=== PATIENT | male | born 1965 | race Hispanic/Latino ===

== ENCOUNTER 2024-11-01 10:22 | Inpatient (IN) | payer SELFPAY ==
[2024-11-01] VITALS (52 sets, daily range): BP systolic 72–139; BP diastolic 42–73; PULSE 75–163; RESP 10–28; TEMP 98.6–99.5; O2SAT 95–99
[~2024-11-01] VITALS: Ht 165.1 cm; Wt 71.9 kg
[~2024-11-01 10:22] MED LIST: ALBUMIN (HUMAN) 25% 50 ML IV ONE
[2024-11-01] MEDS ORDERED: ceFAZolin SODIUM 2 GM VIAL IVP SCH (11:00)
--- NOTE | 2024-11-01 11:01 | NUR ---
Arrived from [facility], transfer for urgent IABP/ CABG Left main 90%, on heparin drip at 17 u kg /hr or 13.48 cc Alert /oriented, sheath in place to right groin, no oozing or indurations Pending face to face to MD to explain plan of care. Patient and family states that it was not explained to them everything that was going to happen.
[2024-11-01] MEDS ORDERED: LACTULOSE 20 GM/30 ML UDCUP PO PRN ×2 (12:00→16:30)
[2024-11-01] MEDS ORDERED: acetaMINOPHEN 325 MG TAB PO PRN ×3 (12:00→17:00)
[2024-11-01] MEDS ORDERED: polyETHYLene GLYCol 3350 17 GM POWD.PACK PO PRN (12:00)
[2024-11-01] MEDS ORDERED: NITROGLYCERIN 0.4 MG SL TAB SL PRN (12:00)
[2024-11-01] MEDS ORDERED: hydrALAZine 25MG TABLET PO PRN (12:00)
[2024-11-01] MEDS ORDERED: ondanSETRON 4MG INJ IV PRN ×2 (12:00→17:00)
[2024-11-01] MEDS ORDERED: HEParin 25,000 UNITS/250ML D5W 250 ML IV SCH (12:00)
[2024-11-01] MEDS ORDERED: doCUSate SODIUM 100 MG CAP PO PRN (12:00)
--- NOTE | 2024-11-01 12:06 | HMCIMG ---
CHEST 1VW REASON: pre op CABG COMPARISON: 10/31/2024 FINDINGS: Single view of the chest was obtained. Lungs are clear. Heart size is normal. There is no pulmonary vascular congestion. Mediastinum and bony thorax appear unremarkable. IMPRESSION: 1. Normal single view chest x-ray.
--- NOTE | 2024-11-01 12:06 | HP ---
[facility] HISTORY & PHYSICAL Date Patient Seen: Nov 01, 2024 Time of Visit: 12:02 Supervising Physician: Ruby Salvador Primary Care Physician: Never seen a family doctor, only Dr. Jorge Blevins Outpatient Specialists: Jorge Hawkins Inpatient Consults: Dr. Blevins, Dr. Walker PROBLEM LIST: Unstable angina Non STEMI S/P C with MvCAD, left main disease in [facility] on 11/01/2024 Multivessel coronary artery disease Primary hypertension Hyperglycemia in the setting of type 2 diabetes mellitus History of hypertension, hyperlipidemia, diabetes mellitus, CAD post stent and PTCA, former 50 pack year cigarette smoker HPI: This is a 59-year-old male with past medical history of type 2 diabetes mellitus, hyperlipidemia, CAD post PTCA and stent to mid and distal RCA and left main disease, low testosterone on testosterone injections weekly, and former 50 pack year cigarette smoker who came to [facility] from [facility] for non STEMI post left heart catheterization with finding of left main disease with normal ejection fraction being evaluated for CABG. Prior to this patient had been having recurrent chest pain with CABRERA. 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 He underwent an emergent left heart catheterization on 07/18/2024 that demonstrated proximal to mid RCA stenosis of 99% with distal RCA stenosis of 70%. PTCA and stent were established to mid and distal RCA with thrombectomy. 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 He was started on aspirin and prasugrel 10 mg daily. When he came back to [facility], he had a chest pain and underwent a treadmill stress test yesterday with findings positive stress test concerning for multivessel CAD. Patient underwent left heart catheterization that was done in [facility] on 10/31/2024 with finding of multivessel coronary artery disease. Patient was then sent to [facility] for evaluation of CABG and IABP for stabilization. 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 Dyspnea, Edema, Lt Headedness Gastrointestinal: No: Nausea, Vomiting, Abdominal Pain, Diarrhea, Constipation, Melena, Hematochezia Genitourinary: No Dysuria, No Frequency, No Incontinence, No Hematuria, No Retention Musculoskeletal: No: other, neck pain, shoulder pain, arm pain, back pain, hand pain, leg pain, foot pain Skin: No Urticaria, No Rash Neurological: No: Weakness, Numbness, Incoordination, Change in speech, Confusion, Seizures PHYSICAL EXAM: GENERAL: alert, weak, awake oriented x 3 HEENT: EOMI, Sclera non icteric, moist mucosa NECK: Supple, no JVD, trachea midline LUNGS: Clear breath sounds bilaterally. No wheezes HEART: Regular rate and rhythm. Normal S1 and S2, without murmurs ABD: Abdomen soft, nontender. Bowel sounds present EXT: No clubbing cyanosis or edema. Right groin with sheath in place NEURO: Alert and oriented to person, follows commands Vital Signs (last 8hr) Date Time Temp Pulse Resp B/P (MAP) Pulse Ox O2 Delivery O2 Flow Rate FiO2 11/01/24 11:30 75 16 109/67 97 Room Air 11/01/24 11:08 77 16 98 Room Air LABS: DIAGNOSTICS / RADIOLOGY RESULTS: [ ] PLAN NEURO: Minimize central acting medications as possible. Fall Precautions. Well lighted room through the day and minimize interruptions through the night to prevent acute delirium. PULMONARY: Supplemental 02 as needed Titrate Fio2 to keep Spo2 > or = 90% DuoNebs and CPT as needed IS hourly while awake for pulmonary hygiene Out of bed to chair as tolerated CARDIOVASCULAR: Follow hemodynamics. Titrate vasopressor to keep MAP >65 or systolic blood pressure >95mmHg Right sheath care with hemodynamic monitoring. Heparin drip Resume metoprolol, statin, and aspirin Pasugrel to resume per CV surgery Follow cardiology and CV surgery recommendations Echocardiogram will be repeated DRIPS: Heparin LINES: PIV Right groin sheath ankit NETTLES 11/01 GI & NUTRITION: Continue nutritional support Aspirations precautions Prokinetic agents and laxatives as needed KIDNEYS & ELECTROLYTES: Strict monitoring of intake and output Daily weights Avoid nephrotoxic agents Monitor electrolytes and replace as needed Goal urine output of 30mL/hr or 0.5mL/kg/hr ENDOCRINE: Maintain blood glucose between 100-180 at all times. Insulin sliding scale for blood glucose management INFECTIOUS DISEASE: Trend temperature. Benavides-culture if febrile. Micro: Antibiotics: HEMATOLOGY & COAGULATION: Monitor H&H. Keep Hgb > 7 Transfuse 1 unit of PRBC for Hgb < 7 Transfuse 1 pack of platelets of platelets < 20, 000 Watch for any signs and symptoms of bleeding SKIN: Pressure ulcer prevention per facility protocol Rehab: PT/OT Prophylaxis: GI: Pepcid DVT: Heparin Code Status: Full Resuscitation Disposition: ICU Other: Total patient care time exceeds 35 minutes excluding all procedures. Case was discussed and seen with my supervising physician. The above plan was formulated and agreed upon. JALEN SHAH [facility] Nov 01, 2024 12:06
[2024-11-01] MEDS ORDERED: hydrALAZine 20MG/ML VIAL IV PRN (12:30)
[2024-11-01 12:39] LABS: HEMATOCRIT 44.4 % (42-54); MEAN CORPUSCULAR HEMOGLOBIN 31.1 pg (27.0-33.0); MEAN CORPUSCULAR HGB CONC 33.6 g/dL (32.0-36.0); MEAN CORPUSCULAR VOLUME 92.7 fL (79-99); RED BLOOD CELL COUNT(AUTO) 4.79 MIL/uL (4.50-6.20); RED CELL DISTRIBUTION WIDTH 11.9 % (11.0-15.5); WHITE BLOOD COUNT (AUTO) 7.8 K/uL (4.8-10.8)
[2024-11-01 12:50] LABS: INR 1.05 (0.85-1.15); PROTHROMBIN TIME 11.3 SEC (9.6-11.6)
[2024-11-01 12:52] LABS: PARTIAL THROMBOPLASTIN TIME 62.9 SEC (26.3-35.5)
[2024-11-01] MEDS: metoPROLOL tartRATE 25 MG TAB PO ONE (13:00)
[2024-11-01 13:18] LABS: HEMOGLOBIN A1C 6.4 % (4.0-6.0)
[2024-11-01 13:21] LABS: ALBUMIN 3.4 g/dL (3.5-5.0); CREATININE 0.8 mg/dL (0.5-1.3); TOTAL PROTEIN, SERUM 6.4 g/dL (6.0-8.3)
--- NOTE | 2024-11-01 13:39 | CONS ---
[facility] CARDIOLOGY CONSULTATION NOTE Date Patient Seen: Nov 01, 2024 Time of Visit: 13:22 Reason for Consultation: [ Coronary arterial disease] History of Present Illness: [59-year-old male patient that follows up at clinic with Dr. Blevins with a past medical history of type 2 diabetes mellitus, hyperlipidemia, coronary artery disease status post recent NSTEMI on 07/18/2024 while in [facility] status post PTCA/PCI of the mid and distal RCA with a 3.5 x 48 mm Xience guide point drug-eluting stent (mid RCA) and a 2.5 x 28 mm plus a 2.5 x 8 mm Xience guide point drug-eluting stent to the distal RCA the patient presented to the office on 10/29/2024 endorsing recurrent limiting angina, due to his ongoing symptoms the patient underwent treadmill stress test on 10/31/2024 exercise was terminated after 4 minutes and 20 seconds due to progressive shortness of breath and chest discomfort with significant ST elevations in AVR, concerning for multivessel CAD, because of the early positive stress test and recurrent angina status post PTCA PCI recently the decision was made to admit the patient at [facility] for coronary angiogram to further define the coronary anatomy the patient was taken to the cardiovascular lab director today that showed 90% ostial left main disease, 70% ostial PDA stenosis, circumflex 60% stenosis OM with a 60% stenosis due to the above-mentioned findings atria was made to consult CV surgery for CABG evaluation the patient was transferred to [facility] for IABP placement. Upon our assessment the patient currently denies any chest pain, palpitations, dyspnea or any other anginal equivalents. Her blood pressure is 118/51 mm of mercury, with a pulse of 78 beats per minute. The patient will undergo IABP placement later this afternoon by Dr. Mac Martinez ] Past Medical History: [Refer to chart ] Past Surgical History: [Refer to HPI ] Family History: [Refer to HPI] Social History: [Refer to HPI] Habits: [Never] smoker. [Denies] alcohol consumption. [Denies] illicit drug use Review of Systems: A review of 12 point system was negative set per HPI Physical Examination: GENERAL: [No acute distress.] HEAD: [Normal with no signs of head trauma.] EYES: [PERRLA, EOMI, conjunctiva and sclera normal.] ENT: [Hearing grossly intact, normal oropharynx.] NECK: [Supple without JVD. There is no tenderness, lymphadenopathy, or masses. No thyromegaly. Normal carotid upstrokes without bruits.] LUNGS: [Clear breath sounds bilaterally. There are right basilar rales one third of the way up the chest. No wheezes, or rhonchi.] HEART: [Normal rate and rhythm. Normal S1 and S2 without mumurs, gallop or rub.] VASC: [Peripheral pulses +2 bilaterally.] ABD: [Bowel sounds normal, soft, nontender, no masses, no organomegaly. No audible bruits.] : [Not examined] LYMPH: [No lymphadenopathy noted.] EXT: [No clubbing, cyanosis or edema.] SKIN: [No rashes or lesions noted.] NEURO: [Awake, alert, and oriented x3. No focal sensory or strength deficits noted.] Vital Signs (last 8hr) Date Time Temp Pulse Resp B/P (MAP) Pulse Ox O2 Delivery O2 Flow Rate FiO2 11/01/24 12:30 78 15 118/51 97 Room Air 11/01/24 12:18 85 14 123/56 97 Room Air 11/01/24 12:15 81 19 124/55 97 Room Air 11/01/24 12:00 82 18 138/62 98 Room Air 11/01/24 11:47 78 16 127/56 97 Room Air 11/01/24 11:45 78 15 130/57 97 Room Air 11/01/24 11:30 75 16 109/67 97 Room Air 11/01/24 11:08 77 16 98 Room Air Laboratory: [ ] Hematology Labs: Test 11/01/24 12:30 Range/Units White Blood Count 7.8 4.8-10.8 K/uL Red Blood Count 4.79 4.50-6.20 MIL/uL Hemoglobin 14.9 14.0-18.0 g/dL Hematocrit 44.4 42-54 % Mean Corpuscular Volume 92.7 79-99 fL Mean Corpuscular Hemoglobin 31.1 27.0-33.0 pg Mean Corpuscular Hemoglobin Concent 33.6 32.0-36.0 g/dL Red Cell Distribution Width 11.9 11.0-15.5 % Platelet Count 258 130-400 K/uL Mean Platelet Volume 10.1 7.5-10.5 fL Nucleated Red Blood Cells 0.0 0.0-0.19 % Chemistry Labs: Test 11/01/24 12:36 11/01/24 12:30 11/01/24 11:52 Range/Units Whole Blood Glucose 93 70-110 MG/DL B-Type Natriuretic Peptide 13 0-100 pg/mL Sodium Level 140 136-145 mmol/L Potassium Level 4.0 3.5-5.1 mmol/L Chloride Level 105 101-111 mmol/L Carbon Dioxide Level 21 21-32 mmol/L Blood Urea Nitrogen 16 7-18 mg/dL Creatinine 0.8 0.5-1.3 mg/dL Glomerular Filtration Rate Calc 101 >90 mL/min Random Glucose 81 70-105 mg/dL Hemoglobin A1c 6.4 H 4.0-6.0 % Estimated Average Glucose (eAG) 137 H 70-126 mg/dL Total Calcium 8.6 8.5-10.1 mg/dL Total Bilirubin 1.0 0.2-1.0 mg/dL Aspartate Amino Transf (AST/SGOT) 21 10-37 U/L Alanine Aminotransferase (ALT/SGPT) 49 12-78 U/L Alkaline Phosphatase 83 50-136 U/L Total Protein 6.4 6.0-8.3 g/dL Albumin 3.4 L 3.5-5.0 g/dL Triglycerides Level 46 30-200 mg/dL Cholesterol Level 89 <200 mg/dL LDL Cholesterol 43 0-99 mg/dL HDL Cholesterol 44 29-71 mg/dL Coagulation Labs: Test 11/01/24 11:52 Range/Units Prothrombin Time 11.3 9.6-11.6 SEC Prothromb Time International Ratio 1.05 0.85-1.15 Activated Partial Thromboplast Time 62.9 H 26.3-35.5 SEC Diagnostics / Radiology: [Copy/Paste Echos/Imaging Report here] Assessment: [Unstable angina NSTEMI, s/p coronary angiogram with severe left main disease and [facility] on 11/01/2024 Multivessel coronary artery disease Primary hypertension Type 2 diabetes mellitus Hyperlipidemia ] Plan: # Severe multivessel CAD - NSTEMI, s/p coronary angiogram with severe left main disease and [facility] on 11/01/2024 History of recent NSTEMI on 07/18/2024 while in [facility] status post PTCA/PCI of the mid and distal RCA with a 3.5 x 48 mm Xience guide point drug- eluting stent (mid RCA) and a 2.5 x 28 mm plus a 2.5 x 8 mm Xience guide point drug-eluting stent to the distal RCA The patient presented to the cardiology clinic on 10/29/2024 endorsing recurrent limiting angina Due to his ongoing symptoms the patient underwent treadmill stress test on 10/31/2024 exercise was terminated after 4 minutes and 20 seconds due to progressive shortness of breath and chest discomfort with significant ST elevations in AVR, concerning for multivessel CAD Because of the early positive stress test and recurrent angina status post PTCA PCI recently the decision was made to admit the patient at [facility] for coronary angiogram to further define the coronary anatomy Patient was started on aspirin 81 mg daily and prasugrel 10 mg daily The patient underwent repeat coronary angiogram 11/01/2024 at [facility] with findings of multivessel coronary artery disease (90% disease of the ostial left main and 70% disease of ostial PDA) Due to the above-mentioned findings CV surgery has been consulted and is pending CABG The patient was transferred to [facility] for IABP placement that will be performed today in the afternoon by Dr. Mac martinez The patient will continue with the heparin drip, aspirin 81 mg daily and atorvastatin 40 mg daily Thank you for this consult cardiology continue to follow along Mac martinez MD ATTESTATION BY PHYSICIAN I have seen and examined the patient, reviewed the above documentation, participated in medical decision making, made necessary modifications, and agree with the treatment plan as documented by my mid-level provider above. MD HONORIO uJne JAMES R MD Nov 01, 2024 13:39
[2024-11-01] MEDS ORDERED: aminoCAProic ACID 5,000MG VIAL 15,000 MG in 0.9% NACL 500ML IV.SOLN 420 ML IV PRN (14:00)
[2024-11-01] MEDS ORDERED: EPINEPHrine PF 1MG (1:1,000) 10 MG in 0.9% NACL 250ML 240 ML IV PRN (14:00)
[2024-11-01] MEDS ORDERED: PAPAVERINE HCL 30 MG/ML 2ML VIAL ONE (14:11)
[2024-11-01] MEDS ORDERED: ceFAZolin SODIUM 1 GM VIAL ONE ×2 (14:11→14:45)
[2024-11-01] MEDS ORDERED: HEParin-NS 1,000 UNIT/500 ML 500 ML IV ONE (14:11)
--- NOTE | 2024-11-01 14:57 | HMCIMG ---
US CAROTID DUPLEX REASON: pre op CABG TECHNIQUE: Exam was performed using spectral analysis and color flow imaging. FINDINGS: Color flow Doppler ultrasound shows normal-appearing bifurcations. There is no anatomic evidence of significant focal narrowing. Flow velocities and velocity ratios appear normal throughout. There is antegrade flow in both vertebral arteries. RIGHT CAROTID: CCA: 143 cm/sec ICA: 108 cm/sec Ratio: ICA/CCA: 0.8 ECA: 148 cm/sec Vertebral artery: 56 cm/sec LEFT CAROTID: CCA: 151 cm/sec ICA: 114 cm/sec Ratio: ICA/CCA: 0.8 ECA: 181 cm/sec Vertebral artery: 61 cm/sec IMPRESSION: Normal bilateral carotid Doppler ultrasound.
[2024-11-01] MEDS ORDERED: LIDOCAINE 2G/250ML 250 ML IV ONE (15:19)
--- NOTE | 2024-11-01 15:30 | NUR ---
SUMMARY-- PATIENT HAD BEEN PICKED UP BY OR STAFF FOR CABG TODAY DR OLMEDO AND DR. HOFFMAN HAVE BOTH EDEL TO BEDSIDE TO EXPLAIN PLAN OFCARE PATIENT HAS BEEN SHAD, PREPPED, BATHED WITH CHG, MAINTAINED ARTERIAL RIGHT GROIN SHEATH WITH NO INDURATION OR OOZING .HEPARIN OFF WHEN DR. Judd VISTED AT BEDSIDE CONSENT OBTAINED WITH FAMILY AT BEDSIDE. P
[2024-11-01] MEDS ORDERED: SODIUM BICARB 50MEQ 50ML VIAL 200 ML ONE (15:40)
[2024-11-01] MEDS ORDERED: proPOFol 10 MG/ML 20ML VIAL IV ONE (15:40)
[2024-11-01] MEDS ORDERED: NOREPINEPHRINE BITARTRATE 1 MG/1 ML ML IV ONE (15:40)
[2024-11-01] MEDS ORDERED: PROTamine SULFate 10 MG/ML 25ML VIAL IV ONE (15:40)
[2024-11-01] MEDS ORDERED: PRAS10TA9 PO (15:40)
[2024-11-01] MEDS ORDERED: METO-391 PO (15:40)
[2024-11-01] MEDS ORDERED: ATOR-2 PO (15:40)
[2024-11-01] MEDS ORDERED: ASPI-1005 PO (15:40)
[2024-11-01] MEDS ORDERED: EMPA10TA PO (15:40)
[2024-11-01] MEDS ORDERED: LIDOCAINE PF 100MG/5ML (2%) SYRINGE 5ML ONE (15:40)
[2024-11-01] MEDS ORDERED: FENTanyl CITRate PF 50 MCG/1 ML 20ML VIAL IJ ONE (15:40)
[2024-11-01] MEDS ORDERED: HEParin 10,000 UNIT/10ML (1,000 UNIT/ML) VIAL ONE ×2 (15:40→16:11)
[2024-11-01] MEDS ORDERED: EPINEPHrine PF 1MG (1:1,000) 1 MG/ML AMP ONE (15:40)
[2024-11-01] MEDS ORDERED: MIDAZOLAM HCL 1 MG/ML 2ML VIAL ONE (15:41)
[2024-11-01] MEDS ORDERED: rocuRONium bROMide 10MG/1ML 5ML VL ONE (15:41)
[2024-11-01] MEDS: ceFAZolin SODIUM 2 GM VIAL IVP ONE (16:00)
[2024-11-01] MEDS ORDERED: MAGNESIUM HYDROXIDE 30 ML/UDCUP PO PRN (16:30)
[2024-11-01] MEDS ORDERED: INSULIN humuLIN R 100 UNIT/ML 3ML SQ SCH (16:30)
[2024-11-01 16:43] LABS: ABG BASE EXCESS -12.3 mmol/L (-2.0-3.0); ABG HCO3 13.2 mmol/L (21.0-28.0); ABG OXYGEN SATURATION 99.2 % (94.0-98.0); ABG PCO2 29 mmHg (35-48); ABG PH 7.271 (7.350-7.450); CARBON MONOXIDE 0.3 % (0.5-1.5); DEVICE COMMENT 1; HHb 0.8; PO2, ARTERIAL BG 278.6 mmHg (83.0-108.0)
[2024-11-01] MEDS ORDERED: SODIUM BICARB 50MEQ 50ML VIAL 250 ML ONE (16:47)
[2024-11-01] MEDS ORDERED: SODIUM BICARB 50MEQ 50ML VIAL 50 ML ONE (16:53)
[2024-11-01 16:58] LABS: ABG BASE EXCESS -2.5 mmol/L (-2.0-3.0); ABG PCO2 27 mmHg (35-48); ABG PH 7.488 (7.350-7.450); CARBON MONOXIDE 0.2 % (0.5-1.5); DEVICE COMMENT 2; PO2, ARTERIAL BG > 500.0 mmHg (83.0-108.0)
[2024-11-01] MEDS ORDERED: DEXTROSE 50%-WATER 50 ML DISP.SYRIN IV ONE (16:59)
[2024-11-01] MEDS ORDERED: traMADol HCL 50 MG TABLET PO PRN (17:00)
[2024-11-01] MEDS ORDERED: DEXTROSE 50%-WATER 50 ML DISP.SYRIN IV PRN (17:00)
[2024-11-01] MEDS ORDERED: INSULIN REGULAR, HUMAN 3ML 100 UNIT in 0.9%NACL 100ML 99 ML IV SCH (17:00)
[2024-11-01] MEDS ORDERED: morPHINE 4 MG SYG IV PRN (17:00)
[2024-11-01] MEDS ORDERED: morPHINE 2 MG SYG IV PRN (17:00)
[2024-11-01] MEDS ORDERED: acetaMINOPHEN 650 MG SUPPOSITORY RC PRN (17:00)
[2024-11-01] MEDS ORDERED: CALCIUM GLUC 1GM 1 GM in 0.9%NACL 50ML 50 ML IV PRN (17:00)
[2024-11-01] MEDS ORDERED: proPOFol 1000 MG/100 ML 100 ML IV PRN (17:00)
[2024-11-01] MEDS ORDERED: NITROGLYCERIN 50MG/D5W 250ML 250 BOT IV SCH (17:00)
[2024-11-01] MEDS ORDERED: aminoCAProic ACID 5,000MG VIAL 15,000 MG in 0.9% NACL 250ML 250 ML IV SCH (17:00)
[2024-11-01] MEDS ORDERED: NOREPINEPHRINE BITARTRATE 8 MG in DEXTROSE 5%-WATER 250 ML IV PRN (17:00)
[2024-11-01] MEDS ORDERED: 0.9%NACL 10ML VIAL IVP PRN (17:00)
[2024-11-01] MEDS ORDERED: GLUCAGON 1MG KIT 1 MG ML IM PRN (17:00)
[2024-11-01] MEDS ORDERED: 0.9% NACL 500ML IV.SOLN 500 ML IV SCH (17:00)
[2024-11-01] MEDS: 0.9%NACL 1000ML 1,000 ML IV SCH (17:00)
[2024-11-01] MEDS ORDERED: poTASSium PHOS 15 mMOL+NS250ML 250 ML IV PRN (17:00)
[2024-11-01 17:19] LABS: ABG HCO3 21.6 mmol/L (21.0-28.0); ABG OXYGEN SATURATION 98.4 % (94.0-98.0); ABG PCO2 28 mmHg (35-48); ABG PH 7.498 (7.350-7.450); CARBON MONOXIDE 0.2 % (0.5-1.5); DEVICE COMMENT 4; HHb 1.6; PO2, ARTERIAL BG 164.9 mmHg (83.0-108.0)
[2024-11-01 18:03] LABS: ABG BASE EXCESS 1.1 mmol/L (-2.0-3.0); ABG HCO3 26.2 mmol/L (21.0-28.0); ABG OXYGEN SATURATION 98.7 % (94.0-98.0); ABG PCO2 44 mmHg (35-48); ABG PH 7.393 (7.350-7.450); CARBON MONOXIDE 0.2 % (0.5-1.5); DEVICE COMMENT 6; HHb 1.3; PO2, ARTERIAL BG 266.3 mmHg (83.0-108.0)
[2024-11-01] MEDS ORDERED: ALBUTEROL INHALER 90MCG/INH IH ONE (18:22)
[2024-11-01 18:33] LABS: ABG BASE EXCESS -4.4 mmol/L (-2.0-3.0); ABG HCO3 21.7 mmol/L (21.0-28.0); ABG OXYGEN SATURATION 97.6 % (94.0-98.0); ABG PCO2 44 mmHg (35-48); ABG PH 7.311 (7.350-7.450); CARBON MONOXIDE 0.3 % (0.5-1.5); DEVICE COMMENT 6; HHb 2.4
[2024-11-01 18:40] LABS: ABG BASE EXCESS -3.7 mmol/L (-2.0-3.0); ABG HCO3 22.2 mmol/L (21.0-28.0); ABG OXYGEN SATURATION 97.3 % (94.0-98.0); ABG PCO2 44 mmHg (35-48); ABG PH 7.321 (7.350-7.450); CARBON MONOXIDE 0.3 % (0.5-1.5); DEVICE COMMENT 1; HHb 2.7
[2024-11-01 19:20] LABS: ABG BASE EXCESS 2.7 mmol/L (-2.0-3.0); ABG HCO3 28.3 mmol/L (21.0-28.0); ABG OXYGEN SATURATION 96.5 % (94.0-98.0); ABG PCO2 50 mmHg (35-48); ABG PH 7.374 (7.350-7.450); CARBON MONOXIDE 0.3 % (0.5-1.5); HHb 3.5; PO2, ARTERIAL BG 105.5 mmHg (83.0-108.0); VENT MODE, BG SIMV PS 10 (ROOM AIR)
[2024-11-01 19:33] LABS: HEMATOCRIT 23.2 % (42-54); MEAN CORPUSCULAR HEMOGLOBIN 31.6 pg (27.0-33.0); MEAN CORPUSCULAR HGB CONC 34.1 g/dL (32.0-36.0); MEAN CORPUSCULAR VOLUME 92.8 fL (79-99); RED BLOOD CELL COUNT(AUTO) 2.5 MIL/uL (4.50-6.20); WHITE BLOOD COUNT (AUTO) 23.6 K/uL (4.8-10.8)
[2024-11-01 19:46] LABS: CREATININE 1.1 mg/dL (0.5-1.3); INR 1.16 (0.85-1.15); MAGNESIUM 1.9 mg/dL (1.80-2.40); PHOSPHORUS 6.3 mg/dL (2.5-4.9); POTASSIUM 3.6 mmol/L (3.5-5.1); PROTHROMBIN TIME 12.4 SEC (9.6-11.6)
[2024-11-01 19:47] LABS: PARTIAL THROMBOPLASTIN TIME 22.6 SEC (26.3-35.5)
[2024-11-01] MEDS: ASPIRIN 81MG CHEW TAB NG ONE (19:55)
[2024-11-01] MEDS: MAGNESIUM 2GM PREMIX 50ML 50 ML IV PRN (19:56)
[2024-11-01] MEDS: PoTASSium chloRIDE 20MEQ/100ML 100 ML IV PRN (19:57)
--- NOTE | 2024-11-01 19:57 | HMCIMG ---
CHEST 1VW REASON: s/p CABG COMPARISON: 11/01/2024 FINDINGS: There has been an interval median sternotomy. Heart size is normal. There are perihilar infiltrates consistent with mild to moderate vascular congestion. ET appears in good position with tip well above the cale. There is an aortic balloon assist pump present, the tip is at the top of the aortic knob. There is no evidence of pneumothorax or other complication. IMPRESSION: There are hilar infiltrates consistent with pulmonary vascular congestion. 2. Aortic balloon assist pump tip is at the top of the aortic knob.
[2024-11-01] MEDS: acetaMINOPHEN 1,000 MG/100 ML VIAL IV SCH (19:58)
[2024-11-01 20:44] LABS: ABG HCO3 22.9 mmol/L (21.0-28.0); ABG OXYGEN SATURATION 96.6 % (94.0-98.0); ABG PCO2 39 mmHg (35-48); ABG PH 7.382 (7.350-7.450); CARBON MONOXIDE 0.3 % (0.5-1.5); DEVICE COMMENT ALINR MC RN; HHb 3.4; PO2, ARTERIAL BG 103.9 mmHg (83.0-108.0); VENT MODE, BG SIMV PS10 (ROOM AIR)
[2024-11-01] MEDS ORDERED: FAMOTIDINE 20MG VIAL IV SCH (21:00)
[2024-11-01] MEDS: atorVAStatin 40 MG TABLET PO SCH (21:00)
[2024-11-01] MEDS ORDERED: metoPROLOL tartRATE 25 MG TAB PO SCH (21:00)
[2024-11-01] MEDS: doCUSate SODIUM 100 MG CAP PO SCH (21:00)
[2024-11-01] MEDS: IpraTROPium/alBUTERol SULFATE 3 ML SOLUTION IH SCH (21:00)
[2024-11-01] MEDS: SODIUM BICARB 50MEQ 50ML VIAL IV PRN (21:21)
[2024-11-01] MEDS: FAMOTIDINE 20MG VIAL IV SCH (21:22)
[2024-11-01] MEDS: ceFAZolin SODIUM 2 GM VIAL IVPB SCH (21:23)
[2024-11-01] MEDS ORDERED: WATER IJ SCH (21:30)
[2024-11-01] MEDS ORDERED: DEXTROSE 5% IJ SCH (21:30)
[2024-11-01] MEDS ORDERED: METHYLENE BLUE IJ SCH (21:30)
[2024-11-01] MEDS: ALBUMIN (HUMAN) 5% 250 ML IV PRN (21:30)
[2024-11-01 21:41] LABS: ABG BASE EXCESS 0.7 mmol/L (-2.0-3.0); ABG HCO3 23.9 mmol/L (21.0-28.0); ABG OXYGEN SATURATION 97.9 % (94.0-98.0); ABG PCO2 33 mmHg (35-48); ABG PH 7.478 (7.350-7.450); CARBON MONOXIDE 0.2 % (0.5-1.5); HHb 2.1; PO2, ARTERIAL BG 162.4 mmHg (83.0-108.0); VENT MODE, BG SIMV PS 10 (ROOM AIR)
[2024-11-01] MEDS: DEXTROSE 5% IJ SCH (21:42)
[2024-11-01] MEDS: METHYLENE BLUE IJ SCH (21:42)
[2024-11-01] MEDS: WATER IJ SCH (21:42)
[2024-11-01] MEDS: PHARMACY COMMUNICATION MISC SCH (21:47)
[2024-11-01 22:53] LABS: ABG BASE EXCESS 3.9 mmol/L (-2.0-3.0); ABG HCO3 27.6 mmol/L (21.0-28.0); ABG OXYGEN SATURATION 98.2 % (94.0-98.0); ABG PCO2 38 mmHg (35-48); ABG PH 7.479 (7.350-7.450); CARBON MONOXIDE 0.3 % (0.5-1.5); HHb 1.8; PO2, ARTERIAL BG 192.8 mmHg (83.0-108.0); VENT MODE, BG SIMV PS 10 (ROOM AIR)
[2024-11-01 23:53] LABS: ABG BASE EXCESS 5.4 mmol/L (-2.0-3.0); ABG HCO3 28.7 mmol/L (21.0-28.0); ABG OXYGEN SATURATION 98.2 % (94.0-98.0); ABG PCO2 37 mmHg (35-48); ABG PH 7.512 (7.350-7.450); CARBON MONOXIDE 0.3 % (0.5-1.5); HHb 1.8; PO2, ARTERIAL BG 229.4 mmHg (83.0-108.0); VENT MODE, BG SIMV PS 10 (ROOM AIR)
[2024-11-02] VITALS (177 sets, daily range): BP systolic 75–157; BP diastolic 42–96; PULSE 86–122; RESP 10–23; TEMP 97.7–100.2; O2SAT 96–99
[2024-11-02] MEDS: NOREPINEPHRIN 8MG/250ML NS 250 ML IV PRN (00:22)
[2024-11-02] MEDS: VASOpressin 20 UNITS/ML 1ML Vi 40 UNITS in 0.9%NACL 50ML 40 ML IV SCH (00:24)
[2024-11-02] MEDS: dexmedeTOMIDine 400MCG/NS100ML IV SCH (00:26)
[2024-11-02 01:09] LABS: ABG BASE EXCESS 4.2 mmol/L (-2.0-3.0); ABG HCO3 28.5 mmol/L (21.0-28.0); ABG OXYGEN SATURATION 97.5 % (94.0-98.0); ABG PCO2 42 mmHg (35-48); CARBON MONOXIDE 0.3 % (0.5-1.5); HHb 2.5; PO2, ARTERIAL BG 136.6 mmHg (83.0-108.0); VENT MODE, BG SIMV PS 10 (ROOM AIR)
--- NOTE | 2024-11-02 01:46 | OP ---
DATE OF PROCEDURE: 11/01/2024 PREOPERATIVE DIAGNOSIS: Left main coronary artery disease. POSTOPERATIVE DIAGNOSIS: Left main coronary artery disease. PROCEDURES PERFORMED: Pump-assisted coronary artery bypass grafting x 3 vessels (left internal mammary artery to the LAD, reverse saphenous vein graft from the aorta to the distal LAD, reverse saphenous vein graft from the aorta to the second obtuse marginal coronary artery). OPERATING SURGEON: Deejay Walker MD RADIO ELECTRONICS OFFICER: JAILYN Mcadams and Christiano Mtz MD TYPE OF ANESTHESIA: General endotracheal anesthesia. BRIEF HISTORY: The patient is a 59-year-old male who was transferred from [facility] with a left 90% left main coronary artery disease. The patient previously had a history of coronary artery disease that required 3 stents to be placed in his right coronary artery. These stents are currently opened. The patient reportedly had a normal ejection fraction. He presents now for surgical revascularization. FINDINGS: The patient on induction developed severe tachycardia and hypotension requiring emergency placement of a right femoral intraaortic balloon pump. By echo, his ejection fraction was approximately 25% with global depressed function. He was therefore cannulated through the left femoral artery and vein for cardiopulmonary bypass and the patient stabilized. The left internal mammary artery was placed to the LAD and a vein graft was placed to the second obtuse marginal coronary artery. A potential target was the diagonal coronary artery, however, this was 1 mm in size and not grafted. The patient came off of cardiopulmonary bypass without difficulties and was given protamine, and when protamine was completely in, the patient again became hypotensive. An echocardiogram showed hypokinesis of the anteroapical wall. Doppler signals were checked in the vein graft and the left internal mammary artery as well as in the LAD distal to the bypass, and there was a good signal. Despite this, I decided to place a vein graft closer to the apex on the LAD. I did probe the anastomosis and the LAD proximally past the anastomosis without resistance. With a new vein graft and resolution of his hypotension, the wall motion abnormality disappeared and we were able to close the chest with normal ventricular function. DESCRIPTION OF PROCEDURE: The patient was brought to the operating room and placed on the operating table in supine position. He was given general endotracheal anesthesia and lines were placed. He then became hypotensive, and using the previously placed arterial sheath from the femoral artery, an intraaortic balloon pump was placed. Its positioning could not be confirmed by KATY due to poor windows. He was placed on one-to-one support without much improvement. We therefore made a transverse incision in the left groin. The left common femoral artery and common femoral vein were dissected out and 5-0 Prolene pursestrings were placed in the anterior wall and snared. The patient was given 300 units/kg of IV heparin. The femoral artery was cannulated with a 17-Albanian arterial cannula, which was deaired and connected to the arterial limb of the cardiopulmonary bypass circuit. Next, a 23-Albanian venous cannula with its tip in the SVC was placed via the left femoral vein and connected to the venous limb of the cardiopulmonary bypass circuit. The patient was placed on full cardiopulmonary bypass. Next, the left saphenous vein was harvested endoscopically and simultaneously. The left internal mammary artery was taken down after performing a median sternotomy. The left internal mammary artery was then divided distally and clamped with bulldog proximally. The pericardium was opened in the midline and the LAD was stabilized with Acrobat epicardial retractor in its midsection. A 5-0 Prolene snares placed proximal to target site, which was opened longitudinally. The distal end of left internal mammary artery was anastomosed inside the LAD over a 1 mm shunt using a running 7-0 Prolene suture. Its pedicle was tacked to the epicardium with two 6-0 Prolene sutures. Bulldog clamp and snares released and the LAD was reperfused for remainder of the procedure. We next turned our attention to performing the bypass to the second obtuse marginal coronary artery. This received the distal end of a reverse saphenous vein graft. An end-to-side anastomosis was performed over a 1 mm shunt using a running 7-0 Prolene suture and this vein graft was draped under left internal mammary artery and cut to appropriate length to reach the aorta. A partial occlusion clamp was then placed on the ascending aorta and a single 4.0 mm aortotomy hole was made in the proximal ends of vein graft, was anastomosed to the side of aorta using a running 6-0 Prolene suture. The vein graft was de-aired. Partial occlusion clamp removed and the left side of the heart was revascularized. The patient was then easily weaned off of cardiopulmonary bypass, given protamine and decannulated. At that point, the patient became hypotensive again and the echocardiogram showed anterior apical hypokinesis. I then placed a 5-0 Prolene snare proximal to target site on the distal LAD and the remaining reverse saphenous vein graft was anastomosed to the side of the distal LAD over a 1 mm shunt using a running 7-0 Prolene suture. This vein graft was then draped over the anterior wall of the heart and cut to appropriate length to reach the aorta. A single 4.0 mm heartstring aortotomy was made and the proximal ends of vein graft was anastomosed to the side of the aorta using a running 6-0 Prolene suture. This vein graft was deaired, and by that time, the patient's blood pressure was improved and the wall motion abnormality had resolved. I failed to mention that the patient was given an extra 10,000 units of heparin prior to completing the second vein graft anastomosis. I also failed to mention that a 1 mm probe was used to probe the left internal mammary artery anastomosis and the LAD after making the distal LAD arteriotomy and prior to sewing the second vein graft on it. The patient was then given platelets, cryoprecipitate and fresh frozen plasma. The pericardium was then loosely approximated to the heart and grafts with several separate Ethibond sutures. The mediastinum and left chest were drained with 24-Albanian Ankit drain, secured to skin with silk sutures. The sternum was then reapproximated with combination of stainless steel wires and the GEOVANY sternal plating system in presternal fashion, subcutaneous closed with running layers of Vicryl suture and the skin was closed using a running intracuticular Monocryl stitch. The wounds were cleaned and dried, covered with bandages and the patient was undraped and taken intubated to the ICU in critical but stable condition. TID: [id number] RECEIPT: [id number] cc: ROMELIA JOSE MD(User), JAILYN Mcadams, Christiano Mtz MD, ANAMARIA CARR MD(User)
[2024-11-02 02:32] LABS: ABG BASE EXCESS 5.7 mmol/L (-2.0-3.0); ABG HCO3 29.7 mmol/L (21.0-28.0); ABG OXYGEN SATURATION 96.9 % (94.0-98.0); ABG PCO2 41 mmHg (35-48); ABG PH 7.478 (7.350-7.450); CARBON MONOXIDE 0.3 % (0.5-1.5); HHb 3.1; VENT MODE, BG SIMV PS 10 (ROOM AIR)
[2024-11-02 03:24] LABS: ABG BASE EXCESS 5.5 mmol/L (-2.0-3.0); ABG HCO3 29.7 mmol/L (21.0-28.0); ABG OXYGEN SATURATION 97.3 % (94.0-98.0); ABG PCO2 42 mmHg (35-48); ABG PH 7.472 (7.350-7.450); CARBON MONOXIDE 0.3 % (0.5-1.5); HHb 2.7; PO2, ARTERIAL BG 116.6 mmHg (83.0-108.0); VENT MODE, BG SIMV PS 10 (ROOM AIR)
[2024-11-02 04:17] LABS: ABG BASE EXCESS 5.8 mmol/L (-2.0-3.0); ABG HCO3 29.8 mmol/L (21.0-28.0); ABG OXYGEN SATURATION 97.1 % (94.0-98.0); ABG PCO2 41 mmHg (35-48); CARBON MONOXIDE 0.3 % (0.5-1.5); HHb 2.9; VENT MODE, BG AC VC (ROOM AIR)
[2024-11-02 04:50] LABS: HEMATOCRIT 24.4 % (42-54); MEAN CORPUSCULAR HEMOGLOBIN 31.2 pg (27.0-33.0); MEAN CORPUSCULAR HGB CONC 33.2 g/dL (32.0-36.0); MEAN CORPUSCULAR VOLUME 93.8 fL (79-99); RED BLOOD CELL COUNT(AUTO) 2.6 MIL/uL (4.50-6.20); RED CELL DISTRIBUTION WIDTH 12.3 % (11.0-15.5); WHITE BLOOD COUNT (AUTO) 14.3 K/uL (4.8-10.8)
[2024-11-02 04:58] LABS: INR 1.1 (0.85-1.15); PROTHROMBIN TIME 11.8 SEC (9.6-11.6)
[2024-11-02 05:00] LABS: PARTIAL THROMBOPLASTIN TIME 33.2 SEC (26.3-35.5)
[2024-11-02 05:16] LABS: CREATININE 1.7 mg/dL (0.5-1.3); MAGNESIUM 2.1 mg/dL (1.80-2.40); POTASSIUM 3.5 mmol/L (3.5-5.1)
[2024-11-02 05:18] LABS: ABG BASE EXCESS 7.2 mmol/L (-2.0-3.0); ABG HCO3 30.8 mmol/L (21.0-28.0); ABG OXYGEN SATURATION 97.4 % (94.0-98.0); ABG PCO2 40 mmHg (35-48); ABG PH 7.506 (7.350-7.450); CARBON MONOXIDE 0.3 % (0.5-1.5); HHb 2.6; PO2, ARTERIAL BG 121.9 mmHg (83.0-108.0); VENT MODE, BG SIMV PS 10 (ROOM AIR)
[2024-11-02 05:47] LABS: PHOSPHORUS 0.6 mg/dL (2.5-4.9)
--- NOTE | 2024-11-02 06:49 | EKG ---
[facility] Test Date: 2024-11-01 Test Time: 19:35:17 Pat Name: QUITA CHRISTOPHER Department: 2CV Room: 213 1 Gender: M Senior Payroll Specialist: BASSAM VELAZQUEZ : 1965 Requested By: REBEKA COLEMAN Order Number: [id number] Reading MD: Delmi Martinez Measurements Intervals Pandora Rate: 151 P: 62 DC: 162 QRS: 90 QRSD: 76 T: 112 QT: 272 QTc: 431 Interpretive Statements Sinus tachycardia with occasional premature ventricular complexes Rightward axis Marked ST abnormality, possible lateral subendocardial injury No previous ECG available for comparison Electronically Signed On 11-02-2024 16:20:44 MANAGER OF SALES by Delmi Martinez Please click the below link to view image of tracing.
[2024-11-02] MEDS ORDERED: morPHINE 2 MG SYG IV PRN (07:30)
[2024-11-02 07:40] LABS: ABG BASE EXCESS 4.4 mmol/L (-2.0-3.0); ABG HCO3 28.1 mmol/L (21.0-28.0); ABG OXYGEN SATURATION 97.4 % (94.0-98.0); ABG PCO2 38 mmHg (35-48); ABG PH 7.485 (7.350-7.450); CARBON MONOXIDE 0.3 % (0.5-1.5); HHb 2.6; PO2, ARTERIAL BG 116.7 mmHg (83.0-108.0); VENT MODE, BG SIMV PS10 (ROOM AIR)
[2024-11-02] MEDS ORDERED: furoSEMIDE 20MG VIAL IV SCH (09:00)
[2024-11-02 09:09] LABS: ABG BASE EXCESS 3.5 mmol/L (-2.0-3.0); ABG HCO3 27.4 mmol/L (21.0-28.0); ABG OXYGEN SATURATION 94.5 % (94.0-98.0); ABG PCO2 38 mmHg (35-48); ABG PH 7.471 (7.350-7.450); CARBON MONOXIDE 0.3 % (0.5-1.5); HHb 5.5; PO2, ARTERIAL BG 78.2 mmHg (83.0-108.0); VENT MODE, BG SIMV PS10 (ROOM AIR)
--- NOTE | 2024-11-02 09:22 | HMCIMG ---
Exam Type: CHEST 1VW Clinical Information: s/p CABG Comparison: None Findings: Pulmonary pattern is as before. No worrisome interval changes have taken place. Impression: Stable exam.
[2024-11-02] MEDS: ASPIRIN 81 MG EC TAB PO SCH (09:39)
--- NOTE | 2024-11-02 10:03 | HMCIMG ---
Exam Type: CHEST 1VW Clinical Information: repositioned of balloon pump Comparison: None Findings: Pulmonary pattern is as before. No worrisome interval changes have taken place. Impression: Stable exam.
[2024-11-02 10:17] LABS: ABG BASE EXCESS 3.4 mmol/L (-2.0-3.0); ABG HCO3 27.6 mmol/L (21.0-28.0); ABG OXYGEN SATURATION 95.1 % (94.0-98.0); ABG PCO2 40 mmHg (35-48); ABG PH 7.453 (7.350-7.450); CARBON MONOXIDE 0.2 % (0.5-1.5); HHb 4.9; PO2, ARTERIAL BG 83.5 mmHg (83.0-108.0); VENT MODE, BG SIMV PS10 (ROOM AIR)
[2024-11-02] MEDS: furoSEMIDE 40MG VIAL IV SCH (10:28)
--- NOTE | 2024-11-02 10:44 | PN ---
[facility] CARDIOLOGY PROGRESS NOTE Date Patient Seen: Nov 02, 2024 Time of Visit: 10:35 Problem List: [Unstable angina NSTEMI, s/p coronary angiogram with severe left main disease and [facility] on 11/01/2024 Multivessel coronary artery disease Primary hypertension Type 2 diabetes mellitus Hyperlipidemia ] Interval History: [No acute events overnight. The patient is status post CABG x3 v (GOLD-LAD, SVG-DISTAL LAD, SVG-OM ) on by Dr Walker. Patient is intubated with mechanical ventilation support, IABP in place currently at 1:1 . Current hemoglobin 8.1 he is amenable pressor support. Urinary output 12 hours is stable ] Physical Examination: GENERAL: [No acute distress.] HEAD: [Normal with no signs of head trauma.] EYES: [PERRLA, EOMI, conjunctiva and sclera normal.] ENT: [Hearing grossly intact, normal oropharynx.] NECK: [Supple without JVD. There is no tenderness, lymphadenopathy, or masses. No thyromegaly. Normal carotid upstrokes without bruits.] LUNGS: [Clear breath sounds bilaterally. No wheezes, or rhonchi.] HEART: [Normal rate and rhythm. Normal S1 and S2 without mumurs, gallop or rub.] VASC: [Peripheral pulses +2 bilaterally.] ABD: [Bowel sounds normal, soft, nontender, no masses, no organomegaly. No audible bruits.] : [Not examined] LYMPH: [No lymphadenopathy noted.] EXT: [No clubbing, cyanosis or edema.] SKIN: [No rashes or lesions noted.] NEURO: [Awake, alert, and oriented x3. No focal sensory or strength deficits noted.] Laboratory: [ ] Hematology Labs: Test 11/02/24 04:27 Range/Units White Blood Count 14.3 #H 4.8-10.8 K/uL Red Blood Count 2.60 L 4.50-6.20 MIL/uL Hemoglobin 8.1 L 14.0-18.0 g/dL Hematocrit 24.4 L 42-54 % Mean Corpuscular Volume 93.8 79-99 fL Mean Corpuscular Hemoglobin 31.2 27.0-33.0 pg Mean Corpuscular Hemoglobin Concent 33.2 32.0-36.0 g/dL Red Cell Distribution Width 12.3 11.0-15.5 % Platelet Count 255 130-400 K/uL Mean Platelet Volume 10.2 7.5-10.5 fL Nucleated Red Blood Cells 0.0 0.0-0.19 % Chemistry Labs: Test 11/02/24 04:27 11/01/24 12:36 11/01/24 12:30 11/01/24 11:52 Range/Units Sodium Level 159 H 136-145 mmol/L Potassium Level 3.5 3.5-5.1 mmol/L Chloride Level 119 H 101-111 mmol/L Carbon Dioxide Level 33 H 21-32 mmol/L Blood Urea Nitrogen 19 H 7-18 mg/dL Creatinine 1.7 H 0.5-1.3 mg/dL Glomerular Filtration Rate Calc 46 >90 mL/min Random Glucose 106 H 70-105 mg/dL Total Calcium 10.1 8.5-10.1 mg/dL Ionized Calcium 1.30 1.16-1.32 MMOL/L Phosphorus Level 0.6 #*L 2.5-4.9 mg/dL Magnesium Level 2.10 1.80-2.40 mg/dL Whole Blood Glucose 93 70-110 MG/DL B-Type Natriuretic Peptide 13 0-100 pg/mL Hemoglobin A1c 6.4 H 4.0-6.0 % Estimated Average Glucose (eAG) 137 H 70-126 mg/dL Total Bilirubin 1.0 0.2-1.0 mg/dL Aspartate Amino Transf (AST/SGOT) 21 10-37 U/L Alanine Aminotransferase (ALT/SGPT) 49 12-78 U/L Alkaline Phosphatase 83 50-136 U/L Troponin I High Sensitivity 25 4-75 ng/L Total Protein 6.4 6.0-8.3 g/dL Albumin 3.4 L 3.5-5.0 g/dL Triglycerides Level 46 30-200 mg/dL Cholesterol Level 89 <200 mg/dL LDL Cholesterol 43 0-99 mg/dL HDL Cholesterol 44 29-71 mg/dL Coagulation Labs: Test 11/02/24 04:27 Range/Units Prothrombin Time 11.8 H 9.6-11.6 SEC Prothromb Time International Ratio 1.10 0.85-1.15 Activated Partial Thromboplast Time 33.2 # 26.3-35.5 SEC Fibrinogen 346 180-350 mg/dL Diagnostics / Radiology: [Copy/Paste Echos/Imaging Report here] Impression and Plan: [Unstable angina s/p coronary angiogram with severe left main disease and [facility] on 11/01/2024 Multivessel coronary artery disease status post CABG x3 v (GOLD-LAD, RSVG-DIST AL LAD, RSVG-OM ) ON by Dr Walker. Primary hypertension Type 2 diabetes mellitus Hyperlipidemia ] Plan: # Severe multivessel CAD Transferred from [facility] following abnormal stress test and findings of severe multivessel CAD with LM involvement. Pt is now s/p CABG x3 v (GOLD-LAD, SVG-DISTAL LAD, SVG-OM ) on by Dr Walker. History of recent NSTEMI on 07/18/2024 while in [facility] status post PTCA/PCI of the mid and distal RCA with a 3.5 x 48 mm Xience guide point drug- eluting stent (mid RCA) and a 2.5 x 28 mm plus a 2.5 x 8 mm Xience guide point drug-eluting stent to the distal RCA The patient presented to the cardiology clinic on 10/29/2024 endorsing recurrent limiting angina Due to his ongoing symptoms the patient underwent treadmill stress test on 10/31/2024 exercise was terminated after 4 minutes and 20 seconds due to progressive shortness of breath and chest discomfort with significant ST elevat ions in AVR, concerning for multivessel CAD Because of the early positive stress test and recurrent angina status post PTCA PCI recently the decision was made to admit the patient at [facility] for coronary angiogram to further define the coronary anatomy The patient underwent repeat coronary angiogram 11/01/2024 at [facility] with findings of multivessel coronary artery disease (90% disease of the ostial left main and 70% disease of ostial PDA) He is now s/p CABG x3 v, the patient is currently intubated on mechanical ventilation support, Urine output in the past 12 hours 1870 (125 mL/kg/hour) Continue Lasix 40 mg IV every 12 hours Continue aspirin 81 mg daily and atorvastatin 80 mg daily Rest of care per CV surgery. Once CT removed and deemed safe by CV surgery pt will require 6 months of DAPT (Asa/Plavix) Thank you for this consult cardiology continue to follow along postoperatively Mac franks MD ATTESTATION BY PHYSICIAN I have seen and examined the patient, reviewed the above documentation, participated in medical decision making, made necessary modifications, and agree with the treatment plan as documented by my mid-level provider above. MD HONORIO June JAMES R MD Nov 02, 2024 10:44
[2024-11-02] MEDS: NOREPINEPHRINE BITARTRATE 8 MG in DEXTROSE 5%-WATER 250 ML IV PRN (10:55)
[2024-11-02 10:58] LABS: ABG BASE EXCESS 4.5 mmol/L (-2.0-3.0); ABG HCO3 28.3 mmol/L (21.0-28.0); ABG OXYGEN SATURATION 95.8 % (94.0-98.0); ABG PCO2 39 mmHg (35-48); ABG PH 7.478 (7.350-7.450); CARBON MONOXIDE 0.3 % (0.5-1.5); HHb 4.2; PO2, ARTERIAL BG 88.1 mmHg (83.0-108.0); VENT MODE, BG SIMV PS10 (ROOM AIR)
[2024-11-02 11:39] LABS: ABG BASE EXCESS 5.2 mmol/L (-2.0-3.0); ABG HCO3 28.9 mmol/L (21.0-28.0); ABG OXYGEN SATURATION 95.5 % (94.0-98.0); ABG PCO2 39 mmHg (35-48); ABG PH 7.489 (7.350-7.450); CARBON MONOXIDE 0.3 % (0.5-1.5); HHb 4.5; PO2, ARTERIAL BG 81.4 mmHg (83.0-108.0); VENT MODE, BG SIMV PS10 (ROOM AIR)
[2024-11-02 12:26] LABS: ABG BASE EXCESS 4.3 mmol/L (-2.0-3.0); ABG HCO3 27.9 mmol/L (21.0-28.0); ABG OXYGEN SATURATION 96.1 % (94.0-98.0); ABG PCO2 38 mmHg (35-48); ABG PH 7.484 (7.350-7.450); CARBON MONOXIDE 0.3 % (0.5-1.5); HHb 3.9; PO2, ARTERIAL BG 87.7 mmHg (83.0-108.0); VENT MODE, BG SIMV PS10 (ROOM AIR)
[2024-11-02] MEDS: doCUSate NA 100MG/10ML UDCUP PO ONE (12:34)
--- NOTE | 2024-11-02 12:51 | PN ---
SUBJECTIVE: The patient is postop day #1 from pump-assisted coronary artery bypass grafting for left main disease. The patient is in the ICU. He remains intubated and on a vasopressin, Levophed and epinephrine drip. OBJECTIVE: VITAL SIGNS: Reveal blood pressure 120/56, oxygen saturations are 96%, and his pulse is 62. HEENT: Reveals normocephalic, atraumatic. He has oral endotracheal tube which is connected to mechanical ventilator. HEART: S1, S2 and regular this morning. LUNGS: Reveal mild rales and rhonchi bilaterally, but unlabored on mechanical ventilator. ABDOMEN: Nondistended. He has a right femoral intraaortic balloon pump. His left groin incision is bandaged. CHEST: His sternal wound is bandaged. His chest tubes are in place with 530 mL of total output since the time of surgery. GENITOURINARY: He has a Little catheter in his bladder. EXTREMITIES: He has SCDs and HOANG stockings on his lower extremities and a knee immobilizer on his right lower extremity. LABORATORY DATA: His hemoglobin is 9.1. BUN is 19, creatinine 1.7. ABG reveals pH of 7.47, pCO2 of 38, pO2 of 78, bicarbonate 27, oxygen saturations are 93%. ASSESSMENT AND PLAN: 1. Postop day #1 from pump-assisted coronary artery bypass grafting. Continue aspirin. Increase Lasix to 40 mg IV b.i.d. due to pulmonary edema. Increase the intra-aortic balloon pump from 1:2 to 1:1 to support the heart while diuresing. Keep chest tubes in place. 2. Postoperative acute pulmonary insufficiency secondary to thoracic surgery and pulmonary edema. We will diurese as mentioned above and keep the patient supported on mechanical ventilator while treating his pulmonary edema. 3. Hypercholesterolemia. Begin Lipitor 80 mg at bedtime. 4. Deep vein thrombosis prophylaxis. Continue sequential compression devices to lower extremities. Time spent 30 minutes. The patient is critically ill in the ICU. TID: [id number] RECEIPT: [id number]
[2024-11-02 13:09] LABS: ABG BASE EXCESS 6.4 mmol/L (-2.0-3.0); ABG HCO3 30.2 mmol/L (21.0-28.0); ABG OXYGEN SATURATION 96.6 % (94.0-98.0); ABG PCO2 40 mmHg (35-48); ABG PH 7.494 (7.350-7.450); CARBON MONOXIDE 0.2 % (0.5-1.5); HHb 3.4; PO2, ARTERIAL BG 96.1 mmHg (83.0-108.0); VENT MODE, BG SIMV PS10 (ROOM AIR)
[2024-11-02 13:43] LABS: ABG BASE EXCESS 6.6 mmol/L (-2.0-3.0); ABG HCO3 30.9 mmol/L (21.0-28.0); ABG OXYGEN SATURATION 96.9 % (94.0-98.0); ABG PCO2 43 mmHg (35-48); ABG PH 7.472 (7.350-7.450); CARBON MONOXIDE 0.3 % (0.5-1.5); HHb 3.1; PO2, ARTERIAL BG 101.2 mmHg (83.0-108.0); VENT MODE, BG SIMV PS10 (ROOM AIR)
[2024-11-02 14:17] LABS: ABG BASE EXCESS 6.3 mmol/L (-2.0-3.0); ABG HCO3 30.6 mmol/L (21.0-28.0); ABG OXYGEN SATURATION 96.8 % (94.0-98.0); ABG PCO2 43 mmHg (35-48); ABG PH 7.471 (7.350-7.450); CARBON MONOXIDE 0.2 % (0.5-1.5); HHb 3.2; PO2, ARTERIAL BG 103.3 mmHg (83.0-108.0); VENT MODE, BG SIMV PS10 (ROOM AIR)
--- NOTE | 2024-11-02 14:46 | PN ---
[facility] PROGRESS NOTE Date Patient Seen: Nov 02, 2024 Time of Visit: 14:43 Supervising Physician: Conrado Walter Primary Care Physician: Never seen a family doctor, only Dr. Jorge Blevins Outpatient Specialists: Jorge Hawkins Inpatient Consults: Dr. Blevins, Dr. Walker PROBLEM LIST: Unstable angina Non STEMI S/P LHC with MvCAD, left main disease in [facility] on 11/01/2024 Multivessel coronary artery disease Primary hypertension Hyperglycemia in the setting of type 2 diabetes mellitus History of hypertension, hyperlipidemia, diabetes mellitus, CAD post stent and PTCA, former 50 pack year cigarette smoker INTERVAL HISTORY: 11/02 patient is awake alert and oriented x3 no acute event. Patient had undergone a CABG times three yesterday, salmeron to LAD, RSVG to distal LAD, RSVG to OM, and intra-aortic balloon pump placement. This time he remains intubated on SIMV 6/700/5/40%. ABG is reviewed and within normal limits. Patient is not sedated very lethargic at this time. He remains on vasopressor with vasopressin, epinephrine, and Levophed. Continue to wean down these vasopressors. Otherwise intra-aortic balloon pump with 1:1 augmentation. Chest tube in place with output of 350 cc. Urine output was 2.6 L balance-350 cc. Continue post CABG care, isulin drip. Chest x-ray with no pneumothorax. Tip of the intra-aortic balloon pump is in ICS 4. Obtain cxr in a.m.. REVIEW OF SYSTEMS: General: No Fever, No Chills, No Night Sweats, No Fatigue, No Malaise, No Appetite HEENT: No Head Aches, No Visual Changes, No Eye Pain, No Ear Pain, No Dysphasia, No Sinus Congestion, No Post Nasal Drip, No Sore Throat Pulmonary: No Dyspnea; No Cough, No Pleuritic Chest Pain Cardiovascular: Yes: Chest Pain, No Palpitations, Orthopnea, Paroxysmal Noc. Dyspnea, Edema, Lt Headedness Gastrointestinal: No: Nausea, Vomiting, Abdominal Pain, Diarrhea, Constipation, Melena, Hematochezia Genitourinary: No Dysuria, No Frequency, No Incontinence, No Hematuria, No Retention Musculoskeletal: No: other, neck pain, shoulder pain, arm pain, back pain, hand pain, leg pain, foot pain Skin: No Urticaria, No Rash Neurological: No: Weakness, Numbness, Incoordination, Change in speech, Confusion, Seizures PHYSICAL EXAM: GENERAL: alert, weak, awake oriented x 3 HEENT: EOMI, Sclera non icteric, moist mucosa NECK: Supple, no JVD, trachea midline LUNGS: Clear breath sounds bilaterally. No wheezes HEART: Regular rate and rhythm. Normal S1 and S2, without murmurs ABD: Abdomen soft, nontender. Bowel sounds present EXT: No clubbing cyanosis or edema. Right groin with sheath in place NEURO: Alert and oriented to person, follows commands Vital Signs (last 8hr) Date Time Temp Pulse Resp B/P (MAP) Pulse Ox O2 Delivery O2 Flow Rate FiO2 11/02/24 14:28 97 15 11/02/24 13:02 91 13 145/57 (86) 98 131/71 (91) 11/02/24 13:00 90 13 146/58 (87) 98 11/02/24 12:47 93 14 125/47 (73) 98 120/56 (77) 11/02/24 12:45 89 13 122/46 (71) 98 11/02/24 12:32 92 14 119/47 (71) 97 40 121/64 (83) 11/02/24 12:30 90 16 114/45 (68) 97 40 11/02/24 12:17 90 15 133/57 (82) 97 40 122/60 (80) 11/02/24 12:15 90 15 133/57 (82) 97 40 11/02/24 12:08 97 40 11/02/24 12:02 91 14 132/55 (80) 96 40 123/87 (99) 11/02/24 12:00 88 15 116/45 (68) 96 40 11/02/24 11:48 96 Ventilator+ 40 11/02/24 11:47 91 16 134/54 (80) 96 40 125/82 (96) 11/02/24 11:45 92 14 137/55 (82) 96 40 11/02/24 11:32 93 16 141/54 (83) 96 40 132/55 (80) 11/02/24 11:30 91 14 139/54 (82) 96 40 11/02/24 11:17 90 15 139/57 (84) 96 40 128/62 (84) 11/02/24 11:15 90 16 137/57 (83) 96 40 11/02/24 11:00 99.7 90 18 121/47 (71) 96 40 11/02/24 10:55 90/74 11/02/24 10:47 90 17 123/49 (73) 96 40 125/52 (76) 11/02/24 10:45 89 16 124/49 (74) 96 40 11/02/24 10:32 88 15 134/48 (76) 96 40 133/57 (82) 11/02/24 10:30 87 17 129/47 (74) 96 40 11/02/24 10:17 89 18 147/58 (87) 96 40 130/52 (78) 11/02/24 10:15 93 19 153/61 (91) 97 40 11/02/24 10:02 88 18 151/59 (89) 96 40 124/77 (93) 11/02/24 10:00 89 17 138/61 (86) 96 40 11/02/24 09:47 88 15 137/57 (83) 96 40 131/95 (107) 11/02/24 09:45 86 14 124/48 (73) 96 40 11/02/24 09:32 88 15 140/58 (85) 97 40 125/96 (106) 11/02/24 09:30 94 14 111/46 (67) 96 40 11/02/24 09:17 89 15 141/63 (89) 96 40 120/87 (98) 11/02/24 09:16 97 40 11/02/24 09:15 89 15 141/63 (89) 96 40 11/02/24 09:02 89 16 118/54 (75) 96 40 116/59 (78) 11/02/24 09:00 91 14 119/54 (75) 96 40 11/02/24 08:47 94 15 117/53 (74) 97 40 115/48 (70) 11/02/24 08:45 94 14 120/55 (76) 96 40 11/02/24 08:32 92 121/52 (75) 97 113/52 (72) 11/02/24 08:30 91 122/53 (76) 96 11/02/24 08:17 93 16 135/61 (85) 96 40 116/46 (69) 11/02/24 08:15 93 15 114/50 (71) 97 40 11/02/24 08:02 96 15 115/51 (72) 97 40 114/47 (69) 11/02/24 08:00 96 14 118/52 (74) 97 40 11/02/24 07:47 95 15 119/52 (74) 97 40 118/51 (73) 11/02/24 07:45 94 14 119/52 (74) 97 40 11/02/24 07:41 40 11/02/24 07:32 96 15 115/55 (75) 97 40 105/47 (66) 11/02/24 07:30 96 15 122/56 (78) 97 40 11/02/24 07:24 97 15 157/62 (93) 99 40 132/60 (84) 11/02/24 07:17 99 14 113/57 (75) 99 40 114/42 (66) 11/02/24 07:15 101 16 134/63 (86) 99 40 11/02/24 07:02 101 17 112/55 (74) 99 40 109/53 (71) 11/02/24 07:00 99 Ventilator+ 50 11/02/24 07:00 101 16 111/55 (73) 99 40 11/02/24 06:47 104 14 103/53 (70) 99 50 101/45 (63) 11/02/24 06:45 98 18 11/02/24 06:45 100.2 104 15 100/52 (68) 99 50 LABS: Hematology Labs: Test 11/02/24 04:27 Range/Units White Blood Count 14.3 #H 4.8-10.8 K/uL Red Blood Count 2.60 L 4.50-6.20 MIL/uL Hemoglobin 8.1 L 14.0-18.0 g/dL Hematocrit 24.4 L 42-54 % Mean Corpuscular Volume 93.8 79-99 fL Mean Corpuscular Hemoglobin 31.2 27.0-33.0 pg Mean Corpuscular Hemoglobin Concent 33.2 32.0-36.0 g/dL Red Cell Distribution Width 12.3 11.0-15.5 % Platelet Count 255 130-400 K/uL Mean Platelet Volume 10.2 7.5-10.5 fL Nucleated Red Blood Cells 0.0 0.0-0.19 % Chemistry Labs: Test 11/02/24 04:27 11/01/24 12:36 11/01/24 12:30 11/01/24 11:52 Range/Units Sodium Level 159 H 136-145 mmol/L Potassium Level 3.5 3.5-5.1 mmol/L Chloride Level 119 H 101-111 mmol/L Carbon Dioxide Level 33 H 21-32 mmol/L Blood Urea Nitrogen 19 H 7-18 mg/dL Creatinine 1.7 H 0.5-1.3 mg/dL Glomerular Filtration Rate Calc 46 >90 mL/min Random Glucose 106 H 70-105 mg/dL Total Calcium 10.1 8.5-10.1 mg/dL Ionized Calcium 1.30 1.16-1.32 MMOL/L Phosphorus Level 0.6 #*L 2.5-4.9 mg/dL Magnesium Level 2.10 1.80-2.40 mg/dL Whole Blood Glucose 93 70-110 MG/DL B-Type Natriuretic Peptide 13 0-100 pg/mL Hemoglobin A1c 6.4 H 4.0-6.0 % Estimated Average Glucose (eAG) 137 H 70-126 mg/dL Total Bilirubin 1.0 0.2-1.0 mg/dL Aspartate Amino Transf (AST/SGOT) 21 10-37 U/L Alanine Aminotransferase (ALT/SGPT) 49 12-78 U/L Alkaline Phosphatase 83 50-136 U/L Troponin I High Sensitivity 25 4-75 ng/L Total Protein 6.4 6.0-8.3 g/dL Albumin 3.4 L 3.5-5.0 g/dL Triglycerides Level 46 30-200 mg/dL Cholesterol Level 89 <200 mg/dL LDL Cholesterol 43 0-99 mg/dL HDL Cholesterol 44 29-71 mg/dL Coagulation Labs: Test 11/02/24 04:27 Range/Units Prothrombin Time 11.8 H 9.6-11.6 SEC Prothromb Time International Ratio 1.10 0.85-1.15 Activated Partial Thromboplast Time 33.2 # 26.3-35.5 SEC Fibrinogen 346 180-350 mg/dL DIAGNOSTICS / RADIOLOGY RESULTS: [ ] PLAN NEURO: Minimize central acting medications as possible. Fall Precautions. Well lighted room through the day and minimize interruptions through the night to prevent acute delirium. PULMONARY: Supplemental 02 as needed Titrate Fio2 to keep Spo2 > or = 90% DuoNebs and CPT as needed IS hourly while awake for pulmonary hygiene Out of bed to chair as tolerated CARDIOVASCULAR: Follow hemodynamics. Titrate vasopressor to keep MAP >65 or systolic blood pressure >95mmHg Right sheath care with hemodynamic monitoring. Heparin drip Resume metoprolol, statin, and aspirin Pasugrel to resume per CV surgery Follow cardiology and CV surgery recommendations Echocardiogram will be repeated DRIPS: Insulin Vasopressin Epinephrine Levophed LINES: Right IJ cordis Left groin sheath for IABP Right groin sheath from [place] 11/01 GI & NUTRITION: Continue nutritional support Aspirations precautions Prokinetic agents and laxatives as needed KIDNEYS & ELECTROLYTES: Strict monitoring of intake and output Daily weights Avoid nephrotoxic agents Monitor electrolytes and replace as needed Goal urine output of 30mL/hr or 0.5mL/kg/hr ENDOCRINE: Maintain blood glucose between 100-180 at all times. Insulin sliding scale for blood glucose management INFECTIOUS DISEASE: Trend temperature. Benavides-culture if febrile. Micro: Antibiotics: HEMATOLOGY & COAGULATION: Monitor H&H. Keep Hgb > 7 Transfuse 1 unit of PRBC for Hgb < 7 Transfuse 1 pack of platelets of platelets < 20, 000 Watch for any signs and symptoms of bleeding SKIN: Pressure ulcer prevention per facility protocol Rehab: PT/OT Prophylaxis: GI: Pepcid DVT: Heparin Code Status: Full Resuscitation Disposition: ICU Other: Total patient care time exceeds 35 minutes excluding all procedures. Case was discussed and seen with my supervising physician. The above plan was formulated and agreed upon. JALEN SHAH [facility] Nov 02, 2024 14:46
[2024-11-02 14:57] LABS: ABG BASE EXCESS 5.1 mmol/L (-2.0-3.0); ABG HCO3 28.8 mmol/L (21.0-28.0); ABG OXYGEN SATURATION 96.8 % (94.0-98.0); ABG PCO2 39 mmHg (35-48); CARBON MONOXIDE 0.2 % (0.5-1.5); HHb 3.2; PO2, ARTERIAL BG 103.8 mmHg (83.0-108.0); VENT MODE, BG SIMV PS10 (ROOM AIR)
[2024-11-02 15:35] LABS: ABG BASE EXCESS 6.1 mmol/L (-2.0-3.0); ABG HCO3 30.4 mmol/L (21.0-28.0); ABG PCO2 43 mmHg (35-48); ABG PH 7.469 (7.350-7.450); CARBON MONOXIDE 0.3 % (0.5-1.5); PO2, ARTERIAL BG 103.8 mmHg (83.0-108.0); VENT MODE, BG SIMV PS10 (ROOM AIR)
[2024-11-02] MEDS: traMADol HCL 50 MG TABLET PO PRN (15:58)
--- NOTE | 2024-11-02 16:50 | NUR ---
Hold off on PT eval per RN.
[2024-11-02] MEDS: EPINEPHrine PF 1MG (1:1,000) 10 MG in 0.9% NACL 250ML 240 ML IV PRN (18:01)
[2024-11-02 18:13] LABS: HEMATOCRIT 26.9 % (42-54)
[2024-11-02 18:38] LABS: CREATININE 1.4 mg/dL (0.5-1.3); MAGNESIUM 1.8 mg/dL (1.80-2.40); PHOSPHORUS 3.3 mg/dL (2.5-4.9); POTASSIUM 4.1 mmol/L (3.5-5.1)
[2024-11-02 19:19] LABS: ABG BASE EXCESS 5.8 mmol/L (-2.0-3.0); ABG HCO3 30.4 mmol/L (21.0-28.0); ABG OXYGEN SATURATION 97.6 % (94.0-98.0); ABG PCO2 45 mmHg (35-48); ABG PH 7.449 (7.350-7.450); CARBON MONOXIDE 0.3 % (0.5-1.5); HHb 2.4; PO2, ARTERIAL BG 117.4 mmHg (83.0-108.0); VENT MODE, BG SIMV PS 10 (ROOM AIR)
[2024-11-02] MEDS: acetaMINOPHEN 325 MG TAB PO PRN (20:31)
[2024-11-02 23:14] LABS: ABG BASE EXCESS 5.4 mmol/L (-2.0-3.0); ABG HCO3 29.4 mmol/L (21.0-28.0); ABG PCO2 41 mmHg (35-48); ABG PH 7.477 (7.350-7.450); CARBON MONOXIDE 0.3 % (0.5-1.5); PO2, ARTERIAL BG 104.1 mmHg (83.0-108.0); VENT MODE, BG SIMV PS 10 (ROOM AIR)
[2024-11-03] VITALS (106 sets, daily range): BP systolic 59–198; BP diastolic 33–95; PULSE 95–116; RESP 10–88; TEMP 98.4–98.8; O2SAT 98–99
[2024-11-03 03:05] LABS: ABG BASE EXCESS 5.2 mmol/L (-2.0-3.0); ABG HCO3 29.3 mmol/L (21.0-28.0); ABG OXYGEN SATURATION 96.6 % (94.0-98.0); ABG PCO2 41 mmHg (35-48); CARBON MONOXIDE 0.3 % (0.5-1.5); HHb 3.4; PO2, ARTERIAL BG 97.2 mmHg (83.0-108.0); VENT MODE, BG SIMV PS 10 (ROOM AIR)
[2024-11-03 04:32] LABS: HEMATOCRIT 28.9 % (42-54); MEAN CORPUSCULAR HEMOGLOBIN 31.3 pg (27.0-33.0); MEAN CORPUSCULAR HGB CONC 32.5 g/dL (32.0-36.0); MEAN CORPUSCULAR VOLUME 96.3 fL (79-99); RED CELL DISTRIBUTION WIDTH 13.1 % (11.0-15.5)
[2024-11-03 04:50] LABS: CREATININE 1.5 mg/dL (0.5-1.3); POTASSIUM 4.3 mmol/L (3.5-5.1); TOTAL PROTEIN, SERUM 5.9 g/dL (6.0-8.3)
[2024-11-03 07:40] LABS: ABG BASE EXCESS 7.6 mmol/L (-2.0-3.0); ABG HCO3 32.3 mmol/L (21.0-28.0); ABG OXYGEN SATURATION 96.8 % (94.0-98.0); ABG PCO2 47 mmHg (35-48); ABG PH 7.457 (7.350-7.450); CARBON MONOXIDE 0.3 % (0.5-1.5); HHb 3.2; PO2, ARTERIAL BG 97.2 mmHg (83.0-108.0); VENT MODE, BG SIMV PS10 (ROOM AIR)
[2024-11-03] MEDS: DEXTROSE 5%-WATER 1,000 ML IV SCH (08:07)
--- NOTE | 2024-11-03 08:51 | HMCIMG ---
Exam Type: CHEST 1VW Clinical Information: s/p CABG Comparison: None November 02, 2024: Pulmonary pattern is as before. No worrisome interval changes have taken place. Impression: Stable exam.
[2024-11-03] MEDS ORDERED: furoSEMIDE 40 MG TABLET PO SCH (09:00)
[2024-11-03] MEDS ORDERED: furoSEMIDE 20 MG TABLET PO SCH (09:00)
[2024-11-03] MEDS: furoSEMIDE 20 MG TABLET PO SCH (09:11)
--- NOTE | 2024-11-03 09:34 | PN ---
[facility] PROGRESS NOTE Date Patient Seen: Nov 03, 2024 Time of Visit: 09:31 Supervising Physician: Conrado Walter Primary Care Physician: Never seen a family doctor, only Dr. Jorge Blevins Outpatient Specialists: Jorge Hawkins Inpatient Consults: Dr. Blevins, Dr. Walker PROBLEM LIST: Unstable angina Non STEMI S/P C with MvCAD, left main disease in [facility] on 11/01/2024 Multivessel coronary artery disease S/P CABG x3 and IABP on 11/02 Dr. Walker Post op leukocytosis- reactive Acute diastolic dysfunction heart failure - LVEF 55% Primary hypertension Hyperglycemia in the setting of type 2 diabetes mellitus History of hypertension, hyperlipidemia, diabetes mellitus, CAD post stent and PTCA, former 50 pack year cigarette smoker INTERVAL HISTORY: 11/02 patient is awake alert and oriented x3 no acute event. Patient had undergone a CABG times three yesterday, salmeron to LAD, RSVG to distal LAD, RSVG to OM, and intra-aortic balloon pump placement. This time he remains intubated on SIMV 6/700/5/40%. ABG is reviewed and within normal limits. Patient is not sedated very lethargic at this time. He remains on vasopressor with vasopressin, epinephrine, and Levophed. Continue to wean down these vasopressors. Otherwise intra-aortic balloon pump with 1:1 augmentation. Chest tube in place with output of 350 cc. Urine output was 2.6 L balance-350 cc. Continue post CABG care, isulin drip. Chest x-ray with no pneumothorax. Tip of the intra-aortic balloon pump is in ICS 4. Obtain cxr in a.m.. 11/03 patient remains intubated on SIMV 10/5 FiO2 40%, ABG this morning pH 7.45, pCO2 47 PO2 97 bicarb is 32. Chemistry with sodium 151 this is actually down from 156 yesterday creatinine is 1.5 down from 1.7 yesterday. He has been diuresed with urine output of 7.1 L balance-4 L. Chest tube with 140 cc. Liver function with the AST up to 500 from 21 and ALT is 200 from 49. Total bilirubin remains normal at 1.0, patient likely has shock liver, we will continue to follow liver function tomorrow. Otherwise hematology with WBC of 19.0 from 14. Hemoglobin is 9.4. He has no fever with T-max 98.8. Chest x-ray this morning with no acute changes, no pneumothorax. He remains on vasopressors with epinephrine and Levophed drip. Continue to wean down as tolerated keep MAP >65. Patient also has intra-aortic balloon pump at 1:1 being weaned to 1:2 this morning, plan to discontinue in AM. Patient is being weaned to extubate today. REVIEW OF SYSTEMS: General: No Fever, No Chills, No Night Sweats, No Fatigue, No Malaise, No Deb etite HEENT: No Head Aches, No Visual Changes, No Eye Pain, No Ear Pain, No Dysphasia, No Sinus Congestion, No Post Nasal Drip, No Sore Throat Pulmonary: No Dyspnea; No Cough, No Pleuritic Chest Pain Cardiovascular: Yes: Chest Pain, No Palpitations, Orthopnea, Paroxysmal Noc. Dyspnea, Edema, Lt Headedness Gastrointestinal: No: Nausea, Vomiting, Abdominal Pain, Diarrhea, Constipation, Melena, Hematochezia Genitourinary: No Dysuria, No Frequency, No Incontinence, No Hematuria, No Retention Musculoskeletal: No: other, neck pain, shoulder pain, arm pain, back pain, hand pain, leg pain, foot pain Skin: No Urticaria, No Rash Neurological: No: Weakness, Numbness, Incoordination, Change in speech, Confusion, Seizures PHYSICAL EXAM: GENERAL: alert, weak, awake oriented x 3 HEENT: EOMI, Sclera non icteric, moist mucosa NECK: Supple, no JVD, trachea midline LUNGS: Clear breath sounds bilaterally. No wheezes HEART: Regular rate and rhythm. Normal S1 and S2, without murmurs ABD: Abdomen soft, nontender. Bowel sounds present EXT: No clubbing cyanosis or edema. Right groin with sheath in place NEURO: Alert and oriented to person, follows commands Vital Signs (last 8hr) Date Time Temp Pulse Resp B/P (MAP) Pulse Ox O2 Delivery O2 Flow Rate FiO2 11/03/24 08:47 105 24 131/53 (79) 98 40 120/80 (93) 11/03/24 08:32 104 18 119/46 (70) 97 40 115/49 (71) 11/03/24 08:17 98.8 105 16 120/47 (71) 98 40 99/71 (80) 11/03/24 08:15 98.8 11/03/24 08:02 102 10 119/45 (69) 98 40 104/44 (64) 11/03/24 07:47 102 21 121/44 (69) 98 40 136/47 (76) 11/03/24 07:32 102 20 117/43 (67) 98 40 105/42 (63) 11/03/24 07:17 102 18 116/44 (68) 98 40 99/41 (60) 11/03/24 07:02 102 14 114/43 (66) 98 40 111/69 (83) 11/03/24 06:47 105 14 132/55 (80) 98 40 113/52 (72) 11/03/24 06:43 99 40 11/03/24 06:00 104 10 115/43 (67) 97 40 114/67 (83) 11/03/24 05:45 105 12 112/44 (66) 97 40 100/49 (66) 11/03/24 05:30 104 10 129/53 (78) 97 40 109/49 (69) 11/03/24 05:15 106 16 120/45 (70) 97 40 113/75 (88) 11/03/24 05:00 107 12 111/46 (67) 96 40 94/66 (75) 11/03/24 04:45 106 12 102/42 (62) 95 40 104/44 (64) 11/03/24 04:30 107 14 111/46 (67) 95 40 101/41 (61) 11/03/24 04:15 109 14 108/57 (74) 93 40 110/65 (80) 11/03/24 04:00 109 17 107/58 (74) 93 40 101/76 (84) 11/03/24 03:45 105 19 123/52 (75) 98 40 127/49 (75) 11/03/24 03:30 102 11 109/49 (69) 98 40 106/73 (84) 11/03/24 03:15 103 11 111/49 (69) 98 40 113/93 (100) 11/03/24 03:14 102 40 11/03/24 03:00 98 Ventilator+ 40 11/03/24 03:00 98.8 103 10 102/41 (61) 98 40 119/42 (67) 11/03/24 02:45 105 11 112/42 (65) 97 40 103/43 (63) 11/03/24 02:30 105 16 98/40 (59) 97 40 96/53 (67) 11/03/24 02:23 110/41 11/03/24 02:15 105 13 114/41 (65) 97 40 115/45 (68) 11/03/24 02:00 105 12 112/41 (64) 96 40 97/56 (70) 11/03/24 01:45 100 14 127/48 (74) 97 40 144/49 (80) LABS: Hematology Labs: Test 11/03/24 04:06 Range/Units White Blood Count 19.0 #H 4.8-10.8 K/uL Red Blood Count 3.00 L 4.50-6.20 MIL/uL Hemoglobin 9.4 L 14.0-18.0 g/dL Hematocrit 28.9 L 42-54 % Mean Corpuscular Volume 96.3 79-99 fL Mean Corpuscular Hemoglobin 31.3 27.0-33.0 pg Mean Corpuscular Hemoglobin Concent 32.5 32.0-36.0 g/dL Red Cell Distribution Width 13.1 11.0-15.5 % Platelet Count 241 130-400 K/uL Mean Platelet Volume 10.4 7.5-10.5 fL Nucleated Red Blood Cells 0.0 0.0-0.19 % Chemistry Labs: Test 11/03/24 07:06 11/03/24 04:06 11/02/24 18:00 11/02/24 04:27 Range/Units Whole Blood Glucose 117 H 70-110 MG/DL Sodium Level 151 H 136-145 mmol/L Potassium Level 4.3 3.5-5.1 mmol/L Chloride Level 114 H 101-111 mmol/L Carbon Dioxide Level 31 21-32 mmol/L Blood Urea Nitrogen 15 7-18 mg/dL Creatinine 1.5 H 0.5-1.3 mg/dL Glomerular Filtration Rate Calc 53 >90 mL/min Random Glucose 134 H 70-105 mg/dL Total Calcium 9.5 8.5-10.1 mg/dL Magnesium Level 2.50 H 1.80-2.40 mg/dL Total Bilirubin 1.0 0.2-1.0 mg/dL Aspartate Amino Transf (AST/SGOT) 585 H 10-37 U/L Alanine Aminotransferase (ALT/SGPT) 203 H 12-78 U/L Alkaline Phosphatase 71 50-136 U/L Total Protein 5.9 L 6.0-8.3 g/dL Albumin 3.0 L 3.5-5.0 g/dL Phosphorus Level 3.3 # 2.5-4.9 mg/dL Ionized Calcium 1.30 1.16-1.32 MMOL/L Test 11/01/24 12:30 11/01/24 11:52 Range/Units B-Type Natriuretic Peptide 13 0-100 pg/mL Hemoglobin A1c 6.4 H 4.0-6.0 % Estimated Average Glucose (eAG) 137 H 70-126 mg/dL Troponin I High Sensitivity 25 4-75 ng/L Triglycerides Level 46 30-200 mg/dL Cholesterol Level 89 <200 mg/dL LDL Cholesterol 43 0-99 mg/dL HDL Cholesterol 44 29-71 mg/dL Coagulation Labs: Test 11/02/24 04:27 Range/Units Prothrombin Time 11.8 H 9.6-11.6 SEC Prothromb Time International Ratio 1.10 0.85-1.15 Activated Partial Thromboplast Time 33.2 # 26.3-35.5 SEC Fibrinogen 346 180-350 mg/dL DIAGNOSTICS / RADIOLOGY RESULTS: [ ] PLAN NEURO: Minimize central acting medications as possible. Fall Precautions. Well lighted room through the day and minimize interruptions through the night to prevent acute delirium. PULMONARY: Supplemental 02 as needed Titrate Fio2 to keep Spo2 > or = 90% DuoNebs and CPT as needed IS hourly while awake for pulmonary hygiene Out of bed to chair as tolerated CARDIOVASCULAR: Follow hemodynamics. Titrate vasopressor to keep MAP >65 or systolic blood pressure >95mmHg Right sheath care with hemodynamic monitoring. Heparin drip Resume metoprolol, statin, and aspirin Pasugrel to resume per CV surgery Follow cardiology and CV surgery recommendations Echocardiogram will be repeated DRIPS: Insulin Vasopressin Epinephrine Levophed LINES: Right IJ cordis Left groin sheath for IABP Right groin sheath from [place] 11/01 GI & NUTRITION: Continue nutritional support Aspirations precautions Prokinetic agents and laxatives as needed KIDNEYS & ELECTROLYTES: Strict monitoring of intake and output Daily weights Avoid nephrotoxic agents Monitor electrolytes and replace as needed Goal urine output of 30mL/hr or 0.5mL/kg/hr ENDOCRINE: Maintain blood glucose between 100-180 at all times. Insulin sliding scale for blood glucose management INFECTIOUS DISEASE: Trend temperature. Benavides-culture if febrile. Micro: Antibiotics: HEMATOLOGY & COAGULATION: Monitor H&H. Keep Hgb > 7 Transfuse 1 unit of PRBC for Hgb < 7 Transfuse 1 pack of platelets of platelets < 20, 000 Watch for any signs and symptoms of bleeding SKIN: Pressure ulcer prevention per facility protocol Rehab: PT/OT Prophylaxis: GI: Pepcid DVT: Heparin Code Status: Full Resuscitation Disposition: ICU Other: Total patient care time exceeds 35 minutes excluding all procedures. Case was discussed and seen with my supervising physician. The above plan was formulated and agreed upon. JALEN SHAH [facility] Nov 03, 2024 09:34
--- NOTE | 2024-11-03 10:08 | HMCIMG ---
INDICATION: REPOSITIONED BALLOON PUMP TECHNIQUE: CHEST 1VW COMPARISON: 11/03/2024 FINDINGS/IMPRESSION: Intra-aortic balloon pump tip located approximately 3.3 cm from top of the aortic arch. The remainder of the study is stable.
[2024-11-03 10:18] LABS: ABG BASE EXCESS 3.8 mmol/L (-2.0-3.0); ABG HCO3 27.9 mmol/L (21.0-28.0); ABG OXYGEN SATURATION 96.7 % (94.0-98.0); ABG PCO2 40 mmHg (35-48); ABG PH 7.458 (7.350-7.450); CARBON MONOXIDE 0.1 % (0.5-1.5); HHb 3.3; PO2, ARTERIAL BG 104.5 mmHg (83.0-108.0); VENT MODE, BG CPAP PS10 (ROOM AIR)
--- NOTE | 2024-11-03 10:30 | PN ---
[facility] CARDIOLOG[facility] PROGRESS NOTE Date Patient Seen: Nov 03, 2024 Time of Visit: 10:23 Problem List: [Unstable angina NSTEMI, s/p coronary angiogram with severe left main disease and [facility] on 11/01/2024 Multivessel coronary artery disease Primary hypertension Type 2 diabetes mellitus Hyperlipidemia ] Interval History: The patient continues on mechanical ventilator support, off sedation currently alert and oriented response to verbal commands, on minimal pressor support current blood pressure 128/51 mmHg, IABP 1:1 , balance is net-4062 mL, current creatinine 1.4 ] Physical Examination: GENERAL: [Intubated.] HEAD: [Normal with no signs of head trauma.] EYES: [PERRLA, EOMI, conjunctiva and sclera normal.] ENT: [Hearing grossly intact, normal oropharynx.] NECK: [Supple without JVD. There is no tenderness, lymphadenopathy, or masses. No thyromegaly. Normal carotid upstrokes without bruits.] LUNGS: [Decreased breath sounds bilaterally. No wheezes, or rhonchi. Chest tubes are in and functional] HEART: [Normal rate and rhythm. Normal S1 and S2 without mumurs, gallop or rub.] VASC: [Peripheral pulses +2 bilaterally.] ABD: [Bowel sounds normal, soft, nontender, no masses, no organomegaly. No audible bruits.] : [Not examined] LYMPH: [No lymphadenopathy noted.] EXT: [No clubbing, cyanosis or edema.] SKIN: [Sternotomy incision dressing place no evidence of bleeding or hematoma NEURO: [Awake, alert, and oriented x2. Intubated Laboratory: [ ] Hematology Labs: Test 11/03/24 04:06 Range/Units White Blood Count 19.0 #H 4.8-10.8 K/uL Red Blood Count 3.00 L 4.50-6.20 MIL/uL Hemoglobin 9.4 L 14.0-18.0 g/dL Hematocrit 28.9 L 42-54 % Mean Corpuscular Volume 96.3 79-99 fL Mean Corpuscular Hemoglobin 31.3 27.0-33.0 pg Mean Corpuscular Hemoglobin Concent 32.5 32.0-36.0 g/dL Red Cell Distribution Width 13.1 11.0-15.5 % Platelet Count 241 130-400 K/uL Mean Platelet Volume 10.4 7.5-10.5 fL Nucleated Red Blood Cells 0.0 0.0-0.19 % Chemistry Labs: Test 11/03/24 09:59 11/03/24 04:06 11/02/24 18:00 11/02/24 04:27 Range/Units Whole Blood Glucose 92 70-110 MG/DL Sodium Level 151 H 136-145 mmol/L Potassium Level 4.3 3.5-5.1 mmol/L Chloride Level 114 H 101-111 mmol/L Carbon Dioxide Level 31 21-32 mmol/L Blood Urea Nitrogen 15 7-18 mg/dL Creatinine 1.5 H 0.5-1.3 mg/dL Glomerular Filtration Rate Calc 53 >90 mL/min Random Glucose 134 H 70-105 mg/dL Total Calcium 9.5 8.5-10.1 mg/dL Magnesium Level 2.50 H 1.80-2.40 mg/dL Total Bilirubin 1.0 0.2-1.0 mg/dL Aspartate Amino Transf (AST/SGOT) 585 H 10-37 U/L Alanine Aminotransferase (ALT/SGPT) 203 H 12-78 U/L Alkaline Phosphatase 71 50-136 U/L Total Protein 5.9 L 6.0-8.3 g/dL Albumin 3.0 L 3.5-5.0 g/dL Phosphorus Level 3.3 # 2.5-4.9 mg/dL Ionized Calcium 1.30 1.16-1.32 MMOL/L Test 11/01/24 12:30 11/01/24 11:52 Range/Units B-Type Natriuretic Peptide 13 0-100 pg/mL Hemoglobin A1c 6.4 H 4.0-6.0 % Estimated Average Glucose (eAG) 137 H 70-126 mg/dL Troponin I High Sensitivity 25 4-75 ng/L Triglycerides Level 46 30-200 mg/dL Cholesterol Level 89 <200 mg/dL LDL Cholesterol 43 0-99 mg/dL HDL Cholesterol 44 29-71 mg/dL Coagulation Labs: Test 11/02/24 04:27 Range/Units Prothrombin Time 11.8 H 9.6-11.6 SEC Prothromb Time International Ratio 1.10 0.85-1.15 Activated Partial Thromboplast Time 33.2 # 26.3-35.5 SEC Fibrinogen 346 180-350 mg/dL Diagnostics / Radiology: [Copy/Paste Echos/Imaging Report here] Impression and Plan: [Unstable angina s/p coronary angiogram with severe left main disease and [facility] on 11/01/2024 Multivessel coronary artery disease status post CABG x3 v (GOLD-LAD, RSVG- DISTAL LAD, RSVG-OM ) ON by Dr Walker. Primary hypertension Type 2 diabetes mellitus Hyperlipidemia ] Plan: # Severe multivessel CAD Transferred from [facility] following abnormal stress test and findings of severe multivessel CAD with LM involvement. Pt is now s/p CABG x3 v (GOLD-LAD, SVG-DISTAL LAD, SVG-OM ) on by Dr Walker. History of recent NSTEMI on 07/18/2024 while in [facility] status post PTCA/PCI of the mid and distal RCA with a 3.5 x 48 mm Xience guide point drug- eluting stent (mid RCA) and a 2.5 x 28 mm plus a 2.5 x 8 mm Xience guide point drug-eluting stent to the distal RCA Due to his ongoing symptoms the patient underwent treadmill stress test on 10/31/2024 exercise was terminated after 4 minutes and 20 seconds due to progressive shortness of breath and chest discomfort with significant ST elevations in AVR, concerning for multivessel CAD Because of the early positive stress test and recurrent angina the decision was made to admit the patient at [facility] for coronary angiogram to further define the coronary anatomy Coronary angiogram 11/01/[address] [facility] with findings of multivessel coronary artery disease (90% disease of the ostial left main and 70% disease of ostial PDA) He is now s/p CABG x3v ((GOLD-LAD, RSVG-DISTAL LAD, RSVG-OM ) ON by Dr Walker. Remains intubated on mechanical ventilation support, he is currently off sedation he is alert and oriented follows simple commands, Current IABP at 1:1 support and has been weaned off pressors. Balance is net negative 4062 mL. Creatinine 1.4. Bilateral chest tubes are in and functional current overnight output of 140 mL Continue Lasix 40 mg IV every 12 hours with strict I/Os and daily weights. Continue aspirin 81 mg daily and atorvastatin 80 mg daily Rest of care per CV surgery. Once CT removed and deemed safe by CV surgery pt will require 6-12 months of DAPT (Asa/Plavix) Thank you for this consult cardiology continue to follow along postoperatively Mac franks MD ATTESTATION BY PHYSICIAN I have seen and examined the patient, reviewed the above documentation, participated in medical decision making, made necessary modifications, and agree with the treatment plan as documented by my mid-level provider above. MD HONORIO June JAMES R MD Nov 03, 2024 10:30
--- NOTE | 2024-11-03 10:43 | PN ---
SUBJECTIVE: The patient is postop day #2 from a pump-assisted coronary artery bypass grafting. The patient diuresed nicely yesterday and was able to be weaned off of his vasopressin drip. OBJECTIVE: VITAL SIGNS: Reveal a pulse of 104, respirations are 10, blood pressure is 115/63, oxygen saturations are 97% on the mechanical ventilator. HEENT: Reveals normocephalic, atraumatic. He has right cervical central venous line. He has oral endotracheal tube connected to mechanical ventilator. He has orogastric tube with bilious drainage. HEART: S1, S2 and slightly tachycardic. LUNGS: Reveal mild rhonchi on the mechanical ventilator. CHEST: His sternal wound is bandaged. His chest tubes are in place with serosanguineous drainage. ABDOMEN: Flat with positive bowel sounds. EXTREMITIES: He has a right femoral intraaortic balloon pump on one-to-one support. He is on an epinephrine drip at 0.08 mcg/kilo/min and Levophed drip at 5 mcg/min. LABORATORY DATA: His white cell count is up from 14,300 to 19,000 (the patient is on steroids). Hemoglobin is 9.5, BUN is 15, creatinine is 1.5. ABGs revealed pH of 7.45, pCO2 47, pO2 97, bicarbonate is 32, and oxygen saturations are 97%. DIAGNOSTIC DATA: Chest x-ray shows improved pulmonary edema. ASSESSMENT AND PLAN: * Status post pump-assisted coronary artery bypass grafting. Continue aspirin. We will decrease his Lasix to 20 mg twice a day. We will decrease his intraaortic balloon pump to 1:2 support and clamps were placed at 1:3 support at midnight in anticipation of removing the balloon pump tomorrow. Wean epinephrine drip. Keep chest tubes on suction. * Postoperative acute pulmonary insufficiency secondary to thoracic surgery and pulmonary edema. Now that the pulmonary edema has nearly resolved, we would wean mechanical ventilator towards extubation. * Hypercholesterolemia. Lipitor at bedtime. Low cholesterol, cardiac diet. * Deep venous thrombosis prophylaxis. Continue sequential compression devices lower extremities. Time spent 30 minutes. The patient is critically ill in the ICU. TID: [id number] RECEIPT: [id number]
[2024-11-03 11:54] LABS: ABG BASE EXCESS 5.3 mmol/L (-2.0-3.0); ABG HCO3 29.7 mmol/L (21.0-28.0); ABG PCO2 43 mmHg (35-48); ABG PH 7.459 (7.350-7.450); CARBON MONOXIDE 0.3 % (0.5-1.5); HHb 6.9; PO2, ARTERIAL BG 68.2 mmHg (83.0-108.0)
--- NOTE | 2024-11-03 12:00 | NUR ---
Patient remains on hold as he is still with Impella in place. PT team to follow.
[2024-11-03 16:10] LABS: ABG BASE EXCESS 3.9 mmol/L (-2.0-3.0); ABG HCO3 28.4 mmol/L (21.0-28.0); ABG OXYGEN SATURATION 93.4 % (94.0-98.0); ABG PCO2 43 mmHg (35-48); ABG PH 7.442 (7.350-7.450); CARBON MONOXIDE 0.1 % (0.5-1.5); HHb 6.6; PO2, ARTERIAL BG 70.7 mmHg (83.0-108.0); VENT MODE, BG NC (ROOM AIR)
[2024-11-03] MEDS: INSULIN humuLIN R 100 UNIT/ML 3ML SQ SCH (16:30)
[2024-11-03 16:36] LABS: CREATININE 1.2 mg/dL (0.5-1.3); MAGNESIUM 2.3 mg/dL (1.80-2.40); POTASSIUM 4.3 mmol/L (3.5-5.1)
[2024-11-04] VITALS (86 sets, daily range): BP systolic 96–149; BP diastolic 42–68; PULSE 99–117; RESP 15–172; TEMP 98.2–99.9; O2SAT 97–99
[2024-11-04 04:28] LABS: HEMATOCRIT 30.3 % (42-54); MEAN CORPUSCULAR HEMOGLOBIN 31.3 pg (27.0-33.0); MEAN CORPUSCULAR HGB CONC 31.7 g/dL (32.0-36.0); MEAN CORPUSCULAR VOLUME 98.7 fL (79-99); NUCLEATED RED BLOOD CELLS 0.1 % (0.0-0.19); RED BLOOD CELL COUNT(AUTO) 3.07 MIL/uL (4.50-6.20); RED CELL DISTRIBUTION WIDTH 13.2 % (11.0-15.5); WHITE BLOOD COUNT (AUTO) 14.3 K/uL (4.8-10.8)
[2024-11-04 04:55] LABS: ALBUMIN 2.5 g/dL (3.5-5.0); BILIRUBIN,TOTAL 1.3 mg/dL (0.2-1.0); CREATININE 1.4 mg/dL (0.5-1.3); MAGNESIUM 2.2 mg/dL (1.80-2.40); PHOSPHORUS 3.5 mg/dL (2.5-4.9); POTASSIUM 3.9 mmol/L (3.5-5.1); TOTAL PROTEIN, SERUM 5.8 g/dL (6.0-8.3)
[2024-11-04 05:01] LABS: INR 0.98 (0.85-1.15)
[2024-11-04 05:03] LABS: PARTIAL THROMBOPLASTIN TIME 29.6 SEC (26.3-35.5)
[2024-11-04] MEDS: NS IV ONE (08:01)
[2024-11-04] MEDS: NOREPINEPHRIN 8 MG/250 ML IV ONE (08:01)
--- NOTE | 2024-11-04 09:23 | NUR ---
[facility] Pt lives with spouse Larissa Gaines [phone]. Pt states previously independent and able to perform ADLs. Does not have medical equipment or had home health services in the past. Pt anticipates to discharge home. Addendum: 11/04/24 at 0929 by BI STOUT RN Amended: Links added.
--- NOTE | 2024-11-04 09:26 | HMCIMG ---
CHEST 1VW HISTORY: Post CABG COMPARISON: 11/03/2024 FINDINGS: A frontal projection of the chest was obtained. There are bilateral pulmonary infiltrates suggestive of pulmonary vascular congestion with possible superimposed pneumonitis. Increase in left lung infiltrates. Poststernotomy changes are seen. The heart is enlarged. Degenerative changes of the thoracolumbar spine are present. All the lines and tubes are again seen in place. No evidence of aortic calcification is seen. IMPRESSION: 1. Interval increase in left lung infiltrates are noted.
--- NOTE | 2024-11-04 09:50 | PN ---
[facility] CARDIOLOGY PROGRESS NOTE Cardiology progress note dictated for Jorge Blevins MD Date Patient Seen: Nov 04, 2024 Interval History: The patient was transferred from [facility] following abnormal stress test and findings of severe multivessel CAD with LM involvement. He is now s/p CABG x3v (GOLD-LAD, SVG-DISTAL LAD, and SVG-OM ) on by Dr Walker. The patient is in bed on 2L of O2 via NC, in no acute distress. He continues on Epinephrine gtt and 1:3 IAB frequency. Chest tube output of 50mls over the last 24hrs. Telemetry demonstrates sinus tachycardia, no no arrhythmias overnight. He denies chest pain, chest pressure, palpitations, shortness of breath, dizziness, nausea or vomiting. Physical Examination: GENERAL: No acute distress. On 2L of O2 via NC HEAD: Normal with no signs of head trauma. EYES: PERRLA, EOMI, conjunctiva and sclera normal. NECK: Supple without JVD. Right IJ central line LUNGS: Coarse breath sounds bilaterally. HEART: Normal rate and rhythm. Normal S1 and S2 without murmurs, gallop or rub. VASC: Bilateral DP pulses 2+. Left wrist arterial line. EXT: No clubbing, cyanosis or edema. INTEG: Mediastinal chest incision with dressing in place GENT: Little catheter draining green urine LINES: Mediastinal chest tube draining serosanguineous fluid. Right groin with IABP in place, is soft to touch, no hematoma noted. NEURO: Awake, alert, and oriented x3. No focal neurological deficits noted. Laboratory: Hematology Labs: Test 11/04/24 04:00 Range/Units White Blood Count 14.3 H 4.8-10.8 K/uL Red Blood Count 3.07 L 4.50-6.20 MIL/uL Hemoglobin 9.6 L 14.0-18.0 g/dL Hematocrit 30.3 L 42-54 % Mean Corpuscular Volume 98.7 79-99 fL Mean Corpuscular Hemoglobin 31.3 27.0-33.0 pg Mean Corpuscular Hemoglobin Concent 31.7 L 32.0-36.0 g/dL Red Cell Distribution Width 13.2 11.0-15.5 % Platelet Count 173 # 130-400 K/uL Mean Platelet Volume 11.1 H 7.5-10.5 fL Nucleated Red Blood Cells 0.1 0.0-0.19 % Chemistry Labs: Test 11/04/24 04:02 11/04/24 04:00 Range/Units Whole Blood Glucose 164 H 70-110 MG/DL Sodium Level 155 H 136-145 mmol/L Potassium Level 3.9 3.5-5.1 mmol/L Chloride Level 112 H 101-111 mmol/L Carbon Dioxide Level 22 21-32 mmol/L Blood Urea Nitrogen 28 H 7-18 mg/dL Creatinine 1.4 H 0.5-1.3 mg/dL Glomerular Filtration Rate Calc 58 >90 mL/min Random Glucose 176 H 70-105 mg/dL Total Calcium 9.3 8.5-10.1 mg/dL Phosphorus Level 3.5 2.5-4.9 mg/dL Magnesium Level 2.20 1.80-2.40 mg/dL Total Bilirubin 1.3 #H 0.2-1.0 mg/dL Aspartate Amino Transf (AST/SGOT) 293 H 10-37 U/L Alanine Aminotransferase (ALT/SGPT) 198 H 12-78 U/L Alkaline Phosphatase 79 50-136 U/L Total Protein 5.8 L 6.0-8.3 g/dL Albumin 2.5 L 3.5-5.0 g/dL Coagulation Labs: Test 11/04/24 04:00 Range/Units Prothrombin Time 11.0 9.6-11.6 SEC Prothromb Time International Ratio 0.98 0.85-1.15 Activated Partial Thromboplast Time 29.6 26.3-35.5 SEC Fibrinogen 830 *H 180-350 mg/dL Diagnostics / Radiology: Impression and Plan: Severe multivessel CAD s/p coronary angiogram with severe left main disease and [facility] on 11/01/2024 Multivessel coronary artery disease status post CABG x3v (GOLD-LAD, RSVG-DISTAL LAD, RSVG-OM ) on by Dr Walker Current IABP at 1:3 support and continues on Epinephrine gtt Continue Lasix 20mg IV q 12 hours with strict I/Os and daily weights Continue aspirin 81 mg daily and hold atorvastatin 80 mg daily due to transaminitis Will hold off on beta-cristina until weaned off pressors Rest of care per CV surgery. Once CT removed and deemed safe by CV surgery pt will require 6-12 months of DAPT (Asa/Plavix) Comorbidities: Primary hypertension Type 2 diabetes mellitus Hyperlipidemia History of recent NSTEMI on 07/18/2024 while in [facility] status post PTCA/PCI of the mid and distal RCA with a 3.5 x 48 mm Xience guide point drug- eluting stent (mid RCA) and a 2.5 x 28 mm plus a 2.5 x 8 mm Xience guide point drug-eluting stent to the distal RCA Treadmill stress test on 10/31/2024, exercise was terminated after 4 minutes and 20 seconds due to progressive shortness of breath and chest discomfort with significant ST elevations in AVR, concerning for multivessel CAD Coronary angiogram on 11/01/2024 at [facility] with findings of multivessel coronary artery disease (90% disease of the ostial left main and 70% disease of ostial PDA) JOAN BARBOSAP Nov 04, 2024 09:50
[2024-11-04] MEDS: furoSEMIDE 20MG VIAL IV SCH (10:06)
--- NOTE | 2024-11-04 11:00 | NUR ---
Impella removed at 11 am. Patient to be seen after 3 pm today.
--- NOTE | 2024-11-04 17:54 | PN ---
[facility] PROGRESS NOTE Date Patient Seen: Nov 04, 2024 Time of Visit: 17:52 Supervising Physician: Conrado Walter Primary Care Physician: Never seen a family doctor, only Dr. Jorge Blevins Outpatient Specialists: Jorge Hawkins Inpatient Consults: Dr. Blevins, Dr. Walker PROBLEM LIST: Unstable angina Non STEMI S/P C with MvCAD, left main disease in [facility] on 11/01/2024 Multivessel coronary artery disease S/P CABG x3 and IABP on 11/02 Dr. Walker Post op leukocytosis- reactive Acute diastolic dysfunction heart failure - LVEF 55% Primary hypertension Hyperglycemia in the setting of type 2 diabetes mellitus History of hypertension, hyperlipidemia, diabetes mellitus, CAD post stent and PTCA, former 50 pack year cigarette smoker INTERVAL HISTORY: 11/02 patient is awake alert and oriented x3 no acute event. Patient had undergone a CABG times three yesterday, salmeron to LAD, RSVG to distal LAD, RSVG to OM, and intra-aortic balloon pump placement. This time he remains intubated on SIMV 6/700/5/40%. ABG is reviewed and within normal limits. Patient is not sedated very lethargic at this time. He remains on vasopressor with vasopressin, epinephrine, and Levophed. Continue to wean down these vasopressors. Otherwise intra-aortic balloon pump with 1:1 augmentation. Chest tube in place with output of 350 cc. Urine output was 2.6 L balance-350 cc. Continue post CABG care, isulin drip. Chest x-ray with no pneumothorax. Tip of the intra-aortic balloon pump is in ICS 4. Obtain cxr in a.m.. 11/03 patient remains intubated on SIMV 10/5 FiO2 40%, ABG this morning pH 7.45, pCO2 47 PO2 97 bicarb is 32. Chemistry with sodium 151 this is actually down from 156 yesterday creatinine is 1.5 down from 1.7 yesterday. He has been diuresed with urine output of 7.1 L balance-4 L. Chest tube with 140 cc. Liver function with the AST up to 500 from 21 and ALT is 200 from 49. Total bilirubin remains normal at 1.0, patient likely has shock liver, we will continue to follow liver function tomorrow. Otherwise hematology with WBC of 19.0 from 14. Hemoglobin is 9.4. He has no fever with T-max 98.8. Chest x-ray this morning with no acute changes, no pneumothorax. He remains on vasopressors with epinephrine and Levophed drip. Continue to wean down as tolerated keep MAP >65. Patient also has intra-aortic balloon pump at 1:1 being weaned to 1:2 this morning, plan to discontinue in AM. Patient is being weaned to extubate today. 11/04 patient is awake alert and following commands lying down in bed accompanied by his . He has been extubated yesterday doing well. At the moment he is on nasal cannula 2 L. Sat is 99%. Heart rate is 112. Respiratory rate is 20. Blood pressure is 112/46. He remains on epinephrine drip. Continue wean down as tolerated. Urine output is 3.4 L with balance-1.4 L. patient's chest tube with output of 50 cc. This morning WBC is 14 down from 19 hemoglobin is 9.6. Chemistry creatinine is 1.4 this is up from 1.2 glucose is 176 sodium 155. LFT with total bilirubin up to 1.3 from 1.0. Avoid hypotension. Continue CABG care. Continue CV surgery recommendations. Chest x-ray in the morning. REVIEW OF SYSTEMS: General: No Fever, No Chills, No Night Sweats, No Fatigue, No Malaise, No Appetite HEENT: No Head Aches, No Visual Changes, No Eye Pain, No Ear Pain, No Dysphasia, No Sinus Congestion, No Post Nasal Drip, No Sore Throat Pulmonary: No Dyspnea; No Cough, No Pleuritic Chest Pain Cardiovascular: Yes: Chest Pain, No Palpitations, Orthopnea, Paroxysmal Noc. Dyspnea, Edema, Lt Headedness Gastrointestinal: No: Nausea, Vomiting, Abdominal Pain, Diarrhea, Constipation, Melena, Hematochezia Genitourinary: No Dysuria, No Frequency, No Incontinence, No Hematuria, No Retention Musculoskeletal: No: other, neck pain, shoulder pain, arm pain, back pain, hand pain, leg pain, foot pain Skin: No Urticaria, No Rash Neurological: No: Weakness, Numbness, Incoordination, Change in speech, Confusion, Seizures PHYSICAL EXAM: GENERAL: alert, weak, awake oriented x 3 HEENT: EOMI, Sclera non icteric, moist mucosa NECK: Supple, no JVD, trachea midline LUNGS: Clear breath sounds bilaterally. No wheezes HEART: Regular rate and rhythm. Normal S1 and S2, without murmurs ABD: Abdomen soft, nontender. Bowel sounds present EXT: No clubbing cyanosis or edema. Right groin with sheath in place NEURO: Alert and oriented to person, follows commands Vital Signs (last 8hr) Date Time Temp Pulse Resp B/P (MAP) Pulse Ox O2 Delivery O2 Flow Rate FiO2 11/04/24 16:05 99 Nasal Cannula* 2 28 11/04/24 16:00 98.2 112 20 112/46 95 Nasal Cannula 3.0 11/04/24 15:47 112 21 109/46 95 11/04/24 15:45 114 20 110/47 95 11/04/24 15:30 117 20 133/53 95 11/04/24 15:15 113 20 125/53 95 11/04/24 15:00 115 20 113/49 95 Nasal Cannula 3.0 11/04/24 14:45 115 20 131/54 (79) 95 11/04/24 14:30 116 20 124/55 (78) 94 11/04/24 14:29 112 18 11/04/24 14:15 115 20 130/54 (79) 94 11/04/24 14:00 114 20 130/55 (80) 94 11/04/24 13:47 113 20 141/57 (85) 94 125/68 (87) 11/04/24 13:45 112 20 144/59 (87) 94 11/04/24 13:30 110 20 148/58 (88) 95 11/04/24 13:15 116 20 118/56 (76) 94 11/04/24 13:00 116 20 118/56 (76) 94 109/57 (74) 11/04/24 12:45 116 20 121/56 (77) 95 11/04/24 12:30 115 36 102/53 (69) 93 11/04/24 12:15 117 28 120/61 (80) 94 11/04/24 12:14 99.9 11/04/24 12:10 99 Nasal Cannula* 2 28 11/04/24 12:00 113 38 141/59 (86) 93 28 117/63 (81) 11/04/24 11:45 112 71 135/58 (83) 92 28 12/16/24 11:30 117 29 130/64 (86) 93 28 11/04/24 11:15 112 28 134/58 (83) 93 28 114/53 (73) 11/04/24 11:00 116 24 131/59 (83) 94 11/04/24 10:45 117 27 127/58 (81) 91 11/04/24 10:30 117 29 131/58 (82) 90 11/04/24 10:15 117 26 149/60 (89) 94 11/04/24 10:00 115 24 114/47 (69) 94 28 114/53 (73) LABS: Hematology Labs: Test 11/04/24 04:00 Range/Units White Blood Count 14.3 H 4.8-10.8 K/uL Red Blood Count 3.07 L 4.50-6.20 MIL/uL Hemoglobin 9.6 L 14.0-18.0 g/dL Hematocrit 30.3 L 42-54 % Mean Corpuscular Volume 98.7 79-99 fL Mean Corpuscular Hemoglobin 31.3 27.0-33.0 pg Mean Corpuscular Hemoglobin Concent 31.7 L 32.0-36.0 g/dL Red Cell Distribution Width 13.2 11.0-15.5 % Platelet Count 173 # 130-400 K/uL Mean Platelet Volume 11.1 H 7.5-10.5 fL Nucleated Red Blood Cells 0.1 0.0-0.19 % Chemistry Labs: Test 11/04/24 16:16 11/04/24 04:00 Range/Units Whole Blood Glucose 130 H 70-110 MG/DL Sodium Level 155 H 136-145 mmol/L Potassium Level 3.9 3.5-5.1 mmol/L Chloride Level 112 H 101-111 mmol/L Carbon Dioxide Level 22 21-32 mmol/L Blood Urea Nitrogen 28 H 7-18 mg/dL Creatinine 1.4 H 0.5-1.3 mg/dL Glomerular Filtration Rate Calc 58 >90 mL/min Random Glucose 176 H 70-105 mg/dL Total Calcium 9.3 8.5-10.1 mg/dL Phosphorus Level 3.5 2.5-4.9 mg/dL Magnesium Level 2.20 1.80-2.40 mg/dL Total Bilirubin 1.3 #H 0.2-1.0 mg/dL Aspartate Amino Transf (AST/SGOT) 293 H 10-37 U/L Alanine Aminotransferase (ALT/SGPT) 198 H 12-78 U/L Alkaline Phosphatase 79 50-136 U/L Total Protein 5.8 L 6.0-8.3 g/dL Albumin 2.5 L 3.5-5.0 g/dL Coagulation Labs: Test 11/04/24 04:00 Range/Units Prothrombin Time 11.0 9.6-11.6 SEC Prothromb Time International Ratio 0.98 0.85-1.15 Activated Partial Thromboplast Time 29.6 26.3-35.5 SEC Fibrinogen 830 *H 180-350 mg/dL DIAGNOSTICS / RADIOLOGY RESULTS: [ ] PLAN NEURO: Minimize central acting medications as possible. Fall Precautions. Well lighted room through the day and minimize interruptions through the night to prevent acute delirium. PULMONARY: Supplemental 02 as needed Titrate Fio2 to keep Spo2 > or = 90% DuoNebs and CPT as needed IS hourly while awake for pulmonary hygiene Out of bed to chair as tolerated CARDIOVASCULAR: Follow hemodynamics. Titrate vasopressor to keep MAP >65 or systolic blood pressure >95mmHg Right sheath care with hemodynamic monitoring. Heparin drip Resume metoprolol, statin, and aspirin Pasugrel to resume per CV surgery Follow cardiology and CV surgery recommendations Echocardiogram will be repeated DRIPS: Insulin Vasopressin Epinephrine Levophed LINES: Right IJ cordis Left groin sheath for IABP Right groin sheath from [place] 11/01 GI & NUTRITION: Continue nutritional support Aspirations precautions Prokinetic agents and laxatives as needed KIDNEYS & ELECTROLYTES: Strict monitoring of intake and output Daily weights Avoid nephrotoxic agents Monitor electrolytes and replace as needed Goal urine output of 30mL/hr or 0.5mL/kg/hr ENDOCRINE: Maintain blood glucose between 100-180 at all times. Insulin sliding scale for blood glucose management INFECTIOUS DISEASE: Trend temperature. Benavides-culture if febrile. Micro: Antibiotics: HEMATOLOGY & COAGULATION: Monitor H&H. Keep Hgb > 7 Transfuse 1 unit of PRBC for Hgb < 7 Transfuse 1 pack of platelets of platelets < 20, 000 Watch for any signs and symptoms of bleeding SKIN: Pressure ulcer prevention per facility protocol Rehab: PT/OT Prophylaxis: GI: Pepcid DVT: Heparin Code Status: Full Resuscitation Disposition: ICU Other: Total patient care time exceeds 35 minutes excluding all procedures. Case was discussed and seen with my supervising physician. The above plan was formulated and agreed upon. JALEN SHAH [facility] Nov 04, 2024 17:54
--- NOTE | 2024-11-04 19:56 | PN ---
SUBJECTIVE: The patient is postop day #3 from an intraaortic balloon pump-assisted coronary artery bypass grafting. The patient's intraaortic balloon pump has been weaned to 1:3 support this morning and in the last 24 hours he has been extubated and weaned off of Levophed drip. OBJECTIVE: VITAL SIGNS: Reveal pulse of 109, blood pressure 122/49, respirations 27, oxygen saturation 100% on nasal cannula oxygen. HEENT: Reveals normocephalic, atraumatic. Extraocular movements intact. He has nasal cannula oxygen prongs under his nose. He has right cervical central venous line. HEART: S1, S2 and tachycardic. CHEST: His sternal wound is bandaged. He has chest tubes in place with sanguineous drainage. LUNGS: Unlabored at rest, lying flat in bed. ABDOMEN: Flat with positive bowel sounds. EXTREMITIES: He has a right femoral intraaortic balloon pump on 1:3 support. He has a knee immobilizer on his right lower leg. He has SCDs and HOANG stockings on both lower extremities. ASSESSMENT AND PLAN: * Status post pump-assisted artery bypass grafting with intraaortic balloon pump. We will discontinue intraaortic balloon pump this morning. Continue aspirin. Wean epinephrine drip to off. He ____ get the patient set up in a bedside chair 4-6 hours after removal of the intraaortic balloon pump. * Hypercholesterolemia. Lipitor at bedtime. Low cholesterol, cardiac diet. * Deep venous thrombosis prophylaxis. Sequential compression devices to lower extremities until chest tubes are out, at which time Lovenox will be started. TID: [id number] RECEIPT: [id number]
[2024-11-05] VITALS (33 sets, daily range): BP systolic 96–136; BP diastolic 37–129; PULSE 93–114; RESP 16–40; TEMP 98.6–99; O2SAT 95–99
[2024-11-05 04:39] LABS: HEMATOCRIT 24.7 % (42-54); MEAN CORPUSCULAR HEMOGLOBIN 31.1 pg (27.0-33.0); MEAN CORPUSCULAR HGB CONC 32.4 g/dL (32.0-36.0); MEAN CORPUSCULAR VOLUME 96.1 fL (79-99); NUCLEATED RED BLOOD CELLS 0.2 % (0.0-0.19); RED BLOOD CELL COUNT(AUTO) 2.57 MIL/uL (4.50-6.20); RED CELL DISTRIBUTION WIDTH 12.8 % (11.0-15.5); WHITE BLOOD COUNT (AUTO) 11.7 K/uL (4.8-10.8)
[2024-11-05 04:49] LABS: CREATININE 1.1 mg/dL (0.5-1.3); POTASSIUM 3.2 mmol/L (3.5-5.1)
[2024-11-05] MEDS: FAMOTIDINE 20MG TAB ONE (08:41)
[2024-11-05] MEDS: PoTASSium chloRIDE 20MEQ ER 20 MEQ ERTAB PO PRN (08:41)
[2024-11-05] MEDS: FAMOTIDINE 20MG TAB PO SCH (09:00)
[2024-11-05] MEDS ORDERED: COMPOUND IV MISC 1 EACH IVSOLN MISC PRN (09:00)
[2024-11-05] MEDS: metoPROLOL tartRATE 25 MG TAB PO SCH (09:15)
[2024-11-05] MEDS ORDERED: furoSEMIDE 20MG VIAL IV SCH (10:00)
--- NOTE | 2024-11-05 10:00 | PN ---
[facility] PROGRESS NOTE Date Patient Seen: Nov 05, 2024 Time of Visit: 10:00 Supervising Physician: Conrado Pinon MD Primary Care Physician: Never seen a family doctor, only Dr. Jorge Blevins Outpatient Specialists: Jorge Hawkins Inpatient Consults: Dr. Blevins, Dr. Walker PROBLEM LIST: Unstable angina Non STEMI S/P C with MvCAD, left main disease in [facility] on 11/01/2024 Multivessel coronary artery disease S/P CABG x3 and IABP on 11/02 Dr. Walekr Post op leukocytosis- reactive Acute diastolic dysfunction heart failure - LVEF 55% Primary hypertension Hyperglycemia in the setting of type 2 diabetes mellitus Normal diastolic function LVEF is 55-60% on 2D echo 11/05/24 History of hypertension, hyperlipidemia, diabetes mellitus, CAD post stent and PTCA, former 50 pack year cigarette smoker INTERVAL HISTORY: 11/02 patient is awake alert and oriented x3 no acute event. Patient had undergone a CABG times three yesterday, salmeron to LAD, RSVG to distal LAD, RSVG to OM, and intra-aortic balloon pump placement. This time he remains intubated on SIMV 6/700/5/40%. ABG is reviewed and within normal limits. Patient is not sedated very lethargic at this time. He remains on vasopressor with vasopressin, epinephrine, and Levophed. Continue to wean down these vasopressors. Otherwise intra-aortic balloon pump with 1:1 augmentation. Chest tube in place with output of 350 cc. Urine output was 2.6 L balance-350 cc. Continue post CABG care, isulin drip. Chest x-ray with no pneumothorax. Tip of the intra-aortic balloon pump is in ICS 4. Obtain cxr in a.m.. 11/03 patient remains intubated on SIMV 10/5 FiO2 40%, ABG this morning pH 7.45, pCO2 47 PO2 97 bicarb is 32. Chemistry with sodium 151 this is actually down from 156 yesterday creatinine is 1.5 down from 1.7 yesterday. He has been diuresed with urine output of 7.1 L balance-4 L. Chest tube with 140 cc. Liver function with the AST up to 500 from 21 and ALT is 200 from 49. Total bilirubin remains normal at 1.0, patient likely has shock liver, we will continue to follow liver function tomorrow. Otherwise hematology with WBC of 19.0 from 14. Hemoglobin is 9.4. He has no fever with T-max 98.8. Chest x-ray this morning with no acute changes, no pneumothorax. He remains on vasopressors with epinephrine and Levophed drip. Continue to wean down as tolerated keep MAP >65. Patient also has intra-aortic balloon pump at 1:1 being weaned to 1:2 this morning, plan to discontinue in AM. Patient is being weaned to extubate today. 11/04 patient is awake alert and following commands lying down in bed accompanied by his . He has been extubated yesterday doing well. At the moment he is on nasal cannula 2 L. Sat is 99%. Heart rate is 112. Respiratory rate is 20. Blood pressure is 112/46. He remains on epinephrine drip. Continue wean down as tolerated. Urine output is 3.4 L with balance-1.4 L. patient's chest tube with output of 50 cc. This morning WBC is 14 down from 19 hemoglobin is 9.6. Chemistry creatinine is 1.4 this is up from 1.2 glucose is 176 sodium 155. LFT with total bilirubin up to 1.3 from 1.0. Avoid hypotension. Continue CABG care. Continue CV surgery recommendations. Chest x-ray in the mo rning. 11/05-patient is awake alert and oriented x3. Denies any chest pain, shortness of breath or palpitations at this time. Intra-aortic balloon pump removed yesterday. Patient is off pressors hemodynamically stable with a blood pressure 120/65 heart rate in the 90s respiratory rate of 22 unlabored saturating 97% with 2 L via nasal cannula afebrile. T-max 99.9 in the last 24 hours. Urine output 5.3 L with a balance of-4 L chest tube drained 90 mL plan is to remove chest tube and central line today per CV surgery. On laboratory WBCs improving 11.7 H&H 8/24.7, pending 1 unit of PRBCs transfusion today, platelet count is normal. Chemistry potassium is 3.2 covered per protocol BUN 28 creatinine 1.1 GFR of 77 with a glucose of 110 mg/dL. 2D echo revealed LVEF 55-60%. REVIEW OF SYSTEMS: General: No Fever, No Chills, No Night Sweats, No Fatigue, No Malaise, No Appetite HEENT: No Head Aches, No Visual Changes, No Eye Pain, No Ear Pain, No Dysphasia, No Sinus Congestion, No Post Nasal Drip, No Sore Throat Pulmonary: No Dyspnea; No Cough, No Pleuritic Chest Pain Cardiovascular: Yes: Chest Pain, No Palpitations, Orthopnea, Paroxysmal Noc. Dyspnea, Edema, Lt Headedness Gastrointestinal: No: Nausea, Vomiting, Abdominal Pain, Diarrhea, Constipation, Melena, Hematochezia Genitourinary: No Dysuria, No Frequency, No Incontinence, No Hematuria, No Retention Musculoskeletal: No: other, neck pain, shoulder pain, arm pain, back pain, hand pain, leg pain, foot pain Skin: No Urticaria, No Rash Neurological: No: Weakness, Numbness, Incoordination, Change in speech, Confusion, Seizures PHYSICAL EXAM: GENERAL: alert, weak, awake oriented x 3 HEENT: EOMI, Sclera non icteric, moist mucosa NECK: Supple, no JVD, trachea midline LUNGS: Clear breath sounds bilaterally. No wheezes HEART: Regular rate and rhythm. Normal S1 and S2, without murmurs ABD: Abdomen soft, nontender. Bowel sounds present EXT: No clubbing cyanosis or edema. Right groin with sheath in place NEURO: Alert and oriented to person, follows commands Vital Signs (last 8hr) Date Time Temp Pulse Resp B/P (MAP) Pulse Ox O2 Delivery O2 Flow Rate FiO2 11/05/24 08:00 97 Nasal Cannula* 2 28 11/05/24 07:15 105 19 114/44 (67) 94 11/05/24 07:00 114 27 127/48 (74) 95 11/05/24 06:00 109 23 127/48 94 11/05/24 05:00 108 20 120/49 96 11/05/24 04:00 99.0 106 23 134/129 98 Nasal Cannula 2.0 11/05/24 04:00 99 Nasal Cannula* 2 28 11/05/24 03:00 107 21 122/51 96 LABS: Hematology Labs: Test 11/05/24 04:15 Range/Units White Blood Count 11.7 H 4.8-10.8 K/uL Red Blood Count 2.57 L 4.50-6.20 MIL/uL Hemoglobin 8.0 L 14.0-18.0 g/dL Hematocrit 24.7 L 42-54 % Mean Corpuscular Volume 96.1 79-99 fL Mean Corpuscular Hemoglobin 31.1 27.0-33.0 pg Mean Corpuscular Hemoglobin Concent 32.4 32.0-36.0 g/dL Red Cell Distribution Width 12.8 11.0-15.5 % Platelet Count 183 130-400 K/uL Mean Platelet Volume 11.0 H 7.5-10.5 fL Nucleated Red Blood Cells 0.2 H 0.0-0.19 % Chemistry Labs: Test 11/05/24 04:15 11/04/24 21:20 11/04/24 04:00 Range/Units Sodium Level 145 136-145 mmol/L Potassium Level 3.2 L 3.5-5.1 mmol/L Chloride Level 105 101-111 mmol/L Carbon Dioxide Level 25 21-32 mmol/L Blood Urea Nitrogen 28 H 7-18 mg/dL Creatinine 1.1 0.5-1.3 mg/dL Glomerular Filtration Rate Calc 77 >90 mL/min Random Glucose 110 H 70-105 mg/dL Total Calcium 8.3 L 8.5-10.1 mg/dL Whole Blood Glucose 119 H 70-110 MG/DL Phosphorus Level 3.5 2.5-4.9 mg/dL Magnesium Level 2.20 1.80-2.40 mg/dL Total Bilirubin 1.3 #H 0.2-1.0 mg/dL Aspartate Amino Transf (AST/SGOT) 293 H 10-37 U/L Alanine Aminotransferase (ALT/SGPT) 198 H 12-78 U/L Alkaline Phosphatase 79 50-136 U/L Total Protein 5.8 L 6.0-8.3 g/dL Albumin 2.5 L 3.5-5.0 g/dL Coagulation Labs: Test 11/04/24 04:00 Range/Units Prothrombin Time 11.0 9.6-11.6 SEC Prothromb Time International Ratio 0.98 0.85-1.15 Activated Partial Thromboplast Time 29.6 26.3-35.5 SEC Fibrinogen 830 *H 180-350 mg/dL DIAGNOSTICS / RADIOLOGY RESULTS: IMAGING REPORT Signed PATIENT: QUITA CHRISTOPHER MR#: [id number] : 1965 SEX: M AGE: 59 LOCATION: 2CV ORDER 1010 STATUS: ADM IN REPORT#: [id number] SERVICE [id number] REASON: Assess LVEF s/p CABG 11/02/2024; post op CHF ORDERING PHYSICIAN: JORGE BLEVINS MD PROCEDURE: ECHO [facility] - ECHO 2-D COMPLETE APPROVED REPORT EXAM: Two-dimensional and M-mode echocardiogram with Doppler and color Doppler. INDICATION ICD: Assess LVEF s/p CABG 11/02/2024; post op CHF 2D Dimensions RVDd 3.1 cm LVEF(%) 50.0 (>50%) LVED Vol(simp.) 64.4 mL IVSd 1.2 (0.7-1.1cm) FS(%) 25 % LVES Vol(simp.) 28.1 mL LVDd 4.0 (3.8-5.6cm) LA (2D) 4.4 (1.6-4.0cm) LVEF(%, simp.) 56 % PWd 1.2 (0.7-1.1cm) Ao Root(2D) 3.3 (2.0-3.7cm) LA ESV INDEX (4CH) 34.20 mL/m2 IVSs 1.0 cm LVOT diam 2.1 (1.8-2.4cm) LA ESV INDEX (2CH) 23.80 mL/m2 LVDs 3.0 (2.5-4.0cm) LA ESV INDEX (BP) 29.50 mL/m2 PWs 1.5 cm M-Mode Dimensions EPSS 1.0 cm LA (MM) 4.4 (1.6-4.0cm) Ao Root(MM) 3.7 (2.0-3.7cm) Aortic Valve AoV VTI 0.2 m Ao Mean GR 2.0 mmHg LVOT VTI 0.12 m SHARLA (VMAX) 2.8 cm2 SHARLA (VTI) 2.8 cm2 Mitral Valve MV E Vmax 98.5 cm/s DECEL Time 148 ms MV A Vmax 53.8 cm/s P 1/2 T 57 ms E/A ratio 1.8 MVA (PHT) 3.9 cm2 MR Max PG 30 mmHg TDI E/E' Medial 21.4 E/E' Lateral 16.7 Medial E' Peak V 4.60 cm/s Lateral E' Peak V 5.90 cm/s Pulmonary Valve PV VTI 0.12 m PV Mean GR 2 mmHg Tricuspid Valve TR Vmax 1.3 m/s TR Peak GR 7.1 mmHg Left Ventricle Left ventricular cavity size is normal. There is normal LV segmental wall motion. There is normal left ventricular wall thickness. LVEF is 55-60%. The left ventricular diastolic function is normal. Right Ventricle The right ventricle is normal size. The right ventricular systolic function is normal. Atria The left atrium size is normal. The right atrium size is normal. Aortic Valve The aortic valve is normal in structure. No aortic regurgitation is present. There is no aortic valvular stenosis. Mitral Valve Mitral valve leaflets open well. There is trace of mitral valve regurgitation noted. There is no mitral valve stenosis. Tricuspid Valve The tricuspid valve is normal in structure. There is no tricuspid valve regurgitation noted. Pulmonic Valve Pulmonic valve is not well visualized. There is no pulmonic valvular regurgitation. Great Vessels The aortic root is normal in size. The IVC is normal in size and collapses >50% with inspiration. Pericardium There is no pericardial effusion. Other Information Quality : Technically difficult study due to s/p CABG Conclusion LVEF is 55-60%. DICTATED BY: MERVIN SERRA MD DATE: 11/05/24 1402 ELECTRONICALLY SIGNED BY: MERVIN SERRA MD DATE: 11/05/242016 PLAN Follow CT surgeon recommendations Follow cardiology recommendations Multimodal pain management Monitoring H&H Monitor chest tube output, DC per CV surgery Chest x-ray in the morning 2D echo results LVEF 55-60%, normal diastolic function Transfuse if absolutely necessary to keep hemoglobin above 8 Maintain O2 sats greater than 92% Incentive spirometry Glycemic control with goal of 80-180 Referral for cardiac rehabilitation Speech to eval once patient is extubated NEURO: Minimize central acting medications as possible. Fall Precautions. Well lighted room through the day and minimize interruptions through the night to prevent acute delirium. PULMONARY: Supplemental 02 as needed Titrate Fio2 to keep Spo2 > or = 90% DuoNebs and CPT as needed IS hourly while awake for pulmonary hygiene Out of bed to chair as tolerated CARDIOVASCULAR: Follow hemodynamics. Titrate vasopressor to keep MAP >65 or systolic blood pressure >95mmHg Right sheath care with hemodynamic monitoring. Heparin drip Resume metoprolol, statin, and aspirin Pasugrel to resume per CV surgery Follow cardiology and CV surgery recommendations Echocardiogram will be repeated DRIPS: Insulin Vasopressin Epinephrine Levophed LINES: Right IJ cordis Left groin sheath for IABP Right groin sheath from [place] 11/01 GI & NUTRITION: Continue nutritional support Aspirations precautions Prokinetic agents and laxatives as needed KIDNEYS & ELECTROLYTES: Strict monitoring of intake and output Daily weights Avoid nephrotoxic agents Monitor electrolytes and replace as needed Goal urine output of 30mL/hr or 0.5mL/kg/hr ENDOCRINE: Maintain blood glucose between 100-180 at all times. Insulin sliding scale for blood glucose management INFECTIOUS DISEASE: Trend temperature. Benavides-culture if febrile. Micro: Antibiotics: HEMATOLOGY & COAGULATION: Monitor H&H. Keep Hgb > 7 Transfuse 1 unit of PRBC for Hgb < 7 Transfuse 1 pack of platelets of platelets < 20, 000 Watch for any signs and symptoms of bleeding SKIN: Pressure ulcer prevention per facility protocol Rehab: PT/OT Prophylaxis: GI: Pepcid DVT: Heparin Code Status: Full Resuscitation Disposition: ICU Other: Total patient care time exceeds 35 minutes excluding all procedures. Case was discussed and seen with my supervising physician. The above plan was formulated and agreed upon. ANGELI HAYDEN Nov 05, 2024 10:00
--- NOTE | 2024-11-05 10:09 | PN ---
[facility] CARDIOLOGY PROGRESS NOTE Date Patient Seen: Nov 05, 2024 Time of Visit: 09:47 Interval History: The patient was transferred from [facility] following abnormal stress test and findings of severe multivessel CAD with LM involvement. He is now s/p CABG x3v (GOLD-LAD, SVG-DISTAL LAD, and SVG-OM ) on 11/02/[address] Walker, postoperative day 3. Pump-assisted coronary artery bypass grafting x 3 vessels 11/02/2024 (left internal mammary artery to the LAD, reverse saphenous vein graft from the aorta to the distal LAD, reverse saphenous vein graft from the aorta to the second obtuse marginal coronary artery). His postoperative course has been complicated by acute pulmonary edema and presumed shock liver with elevation of transaminases. The patient's balloon pump was removed yesterday and this morning the patient is comfortable and without complaints of chest pain. He appears mildly dyspneic at rest. Physical Examination: GENERAL: No acute distress. On 2L of O2 via NC. The patient appears weak and debilitated. HEAD: Normal with no signs of head trauma. EYES: PERRLA, EOMI, conjunctiva and sclera normal. NECK: Supple without JVD. Right IJ central line LUNGS: bibasilar rales persist. Mediastinal chest incision with dressing in place HEART: Normal rate and rhythm. Normal S1 and S2 without murmurs, gallop or rub. VASC: Bilateral DP pulses 2+. Left wrist arterial line. EXT: No clubbing, cyanosis or edema. Extremities are mildly cool to the touch. GENT: Little catheter draining green urine NEURO: Awake, alert, and oriented x3. No focal neurological deficits noted. Laboratory: Hematology Labs: Test 11/05/24 04:15 Range/Units White Blood Count 11.7 H 4.8-10.8 K/uL Red Blood Count 2.57 L 4.50-6.20 MIL/uL Hemoglobin 8.0 L 14.0-18.0 g/dL Hematocrit 24.7 L 42-54 % Mean Corpuscular Volume 96.1 79-99 fL Mean Corpuscular Hemoglobin 31.1 27.0-33.0 pg Mean Corpuscular Hemoglobin Concent 32.4 32.0-36.0 g/dL Red Cell Distribution Width 12.8 11.0-15.5 % Platelet Count 183 130-400 K/uL Mean Platelet Volume 11.0 H 7.5-10.5 fL Nucleated Red Blood Cells 0.2 H 0.0-0.19 % Chemistry Labs: Test 11/05/24 04:15 11/04/24 21:20 11/04/24 04:00 Range/Units Sodium Level 145 136-145 mmol/L Potassium Level 3.2 L 3.5-5.1 mmol/L Chloride Level 105 101-111 mmol/L Carbon Dioxide Level 25 21-32 mmol/L Blood Urea Nitrogen 28 H 7-18 mg/dL Creatinine 1.1 0.5-1.3 mg/dL Glomerular Filtration Rate Calc 77 >90 mL/min Random Glucose 110 H 70-105 mg/dL Total Calcium 8.3 L 8.5-10.1 mg/dL Whole Blood Glucose 119 H 70-110 MG/DL Phosphorus Level 3.5 2.5-4.9 mg/dL Magnesium Level 2.20 1.80-2.40 mg/dL Total Bilirubin 1.3 #H 0.2-1.0 mg/dL Aspartate Amino Transf (AST/SGOT) 293 H 10-37 U/L Alanine Aminotransferase (ALT/SGPT) 198 H 12-78 U/L Alkaline Phosphatase 79 50-136 U/L Total Protein 5.8 L 6.0-8.3 g/dL Albumin 2.5 L 3.5-5.0 g/dL Coagulation Labs: Test 11/04/24 04:00 Range/Units Prothrombin Time 11.0 9.6-11.6 SEC Prothromb Time International Ratio 0.98 0.85-1.15 Activated Partial Thromboplast Time 29.6 26.3-35.5 SEC Fibrinogen 830 *H 180-350 mg/dL Diagnostics / Radiology: Left heart catheterization [facility] 11/01/2024 Normal LV systolic function and segmental wall motion with LV EF of 65% No MR. No aortic stenosis. Severe left main and multivessel coronary artery disease with 90% ostial left main stenosis, 70% and 80% tandem mid LAD stenosis, 80% distal LAD stenosis, 60% mid left circumflex stenosis and 60% OM2 stenosis, widely patent overlapping stents in the proximal to mid RCA and distal RCA from 07/18/2024, and 70% PLV branch stenosis Impression and Plan: Severe multivessel CAD with 90% left main involvement by cardiac catheterization at [facility] on 11/01/2024 with 90% ostial left main stenosis, 70% and 80% tandem mid LAD stenosis, 80% distal LAD stenosis, 60% mid left circumflex stenosis and 60% OM2 stenosis, widely patent overlapping stents in the proximal to mid RCA and distal RCA from 07/18/2024, and 70% PLV branch stenosis: Status post pump assisted CABG x3v (GOLD-LAD, RSVG-DISTAL LAD, RSVG-OM ) on 11/02/[address] Walker: Status post intra-aortic balloon pump insertion for stabilization intraoperatively during bypass surgery 11/02/2024: -Continue Lasix 20mg IV q 12 hours with strict I/Os and daily weights -Continue aspirin 81 mg daily and hold atorvastatin 80 mg daily due to transaminitis -Defer beta-cristina until CHF compensated. -Proceed with 2D echo to reassess LVEF. -Once CT removed and deemed safe by CV surgery pt will require 12 months of DAPT (Asa/Plavix) Coronary artery disease status post inferior non-STEMI [facility] treated with PTCA and stenting of the proximal and mid RCA with overlapping 3.5 x 48 and 3.5 x 28 Xience drug-eluting stent and a 2.5 x 8 mm Xience drug-eluting stent to the distal RCA on 07/18/2024: -continue dual antiplatelet therapy postoperatively when cleared for initiation of clopidogrel (preferably in the next 24 hours) Preserved LV systolic function preoperatively with LV EF of 65% by cardiac catheterization 11/01/2024: -await postoperative 2D echo Comorbidities: Primary hypertension Type 2 diabetes mellitus Hyperlipidemia Treadmill stress test on 10/31/2024, exercise was terminated after 4 minutes and 20 seconds due to progressive shortness of breath and chest discomfort with significant ST elevations in AVR, concerning for multivessel CAD ANAMARIA CARR MD Nov 05, 2024 10:09
--- NOTE | 2024-11-05 12:00 | HMCIMG ---
CHEST 1VW HISTORY: Post CABG COMPARISON: 11/04/2024 FINDINGS: A frontal projection of the chest was obtained. There are bilateral pulmonary infiltrates suggestive of pulmonary vascular congestion with possible superimposed pneumonitis. Left pleural effusion is seen. Poststernotomy changes are seen. The heart is enlarged. Degenerative changes of the thoracolumbar spine are present. All the lines and tubes are again seen in place. No evidence of aortic calcification is seen. IMPRESSION: 1. Bilateral pulmonary infiltrates are seen suggestive of pulmonary vascular congestion with possible superimposed pneumonitis.
--- NOTE | 2024-11-05 12:05 | EKG ---
[facility] Test Date: 2024-11-05 Test Time: 12:05:03 Pat Name: QUITA CHRISTOPHER Department: 2CV Room: 213 1 Gender: M [employer]: SARAH : 1965 Requested By: ANAMARIA CARR Order Number: [id number] Reading MD: Dionisio Colin Measurements Intervals [place] Rate: 100 P: 37 CT: 142 QRS: -26 QRSD: 82 T: 79 QT: 366 QTc: 472 Interpretive Statements Normal sinus rhythm Low voltage QRS Septal infarct , age undetermined Compared to ECG 11/01/2024 19:35:17 Low QRS voltage now present Myocardial infarct finding now present Sinus tachycardia no longer present Ventricular premature complex(es) no longer present Right-axis deviation no longer present ST (T wave) deviation no longer present Electronically Signed On 11-05-2024 20:57:29 [employer]UEPRINT DEVELOPER by Dionisio Colin Please click the below link to view image of tracing.
[2024-11-05] MEDS: furoSEMIDE 20MG VIAL IV SCH (16:07)
[2024-11-05] MEDS: PoTASSium chl 10% ELIXIR 20MEQ 20 MEQ/15 ML UDCUP PO PRN (16:43)
[2024-11-05] MEDS ORDERED: dilTIAZem 125 MG/25 ML INJ 125 MG in 0.9%NACL 100ML 100 ML IV STA (17:04)
[2024-11-05] MEDS ORDERED: dilTIAZem 25MG INJ IVP PRN (17:30)
[2024-11-05] MEDS ORDERED: dilTIAZem 125 MG/25 ML INJ 125 MG in 0.9%NACL 100ML 100 ML IV SCH (17:30)
--- NOTE | 2024-11-05 20:17 | HMCSR ---
APPROVED REPORT EXAM: Two-dimensional and M-mode echocardiogram with Doppler and color Doppler. INDICATION ICD: Assess LVEF s/p CABG 11/02/2024; post op CHF 2D Dimensions RVDd3.1 cmLVEF(%)50.0 (>50%)LVED Vol(simp.)64.4 mL IVSd1.2 (0.7-1.1cm)FS(%)25 %LVES Vol(simp.)28.1 mL LVDd4.0 (3.8-5.6cm)LA (2D)4.4 (1.6-4.0cm)LVEF(%, simp.)56 % PWd1.2 (0.7-1.1cm)Ao Root(2D)3.3 (2.0-3.7cm)LA ESV INDEX (4CH)34.20 mL/m2 IVSs1.0 cmLVOT diam2.1 (1.8-2.4cm)LA ESV INDEX (2CH)23.80 mL/m2 LVDs3.0 (2.5-4.0cm)LA ESV INDEX (BP)29.50 mL/m2 PWs1.5 cm M-Mode Dimensions EPSS1.0 cm LA (MM)4.4 (1.6-4.0cm) Ao Root(MM)3.7 (2.0-3.7cm) Aortic Valve AoV VTI0.2 mAo Mean GR2.0 mmHgLVOT VTI0.12 m SHARLA (VMAX)2.8 cm2AVA (VTI) 2.8 cm2 Mitral Valve MV E Vmax98.5 cm/sDECEL Eajq134 ms MV A Vmax53.8 cm/sP 1/2 T57 ms E/A ratio1.8MVA (PHT)3.9 cm2 MR Max PG30 mmHg TDI E/E' Mzwunc20.4E/E' Hblwqpx83.7 Medial E' Peak V4.60 cm/sLateral E' Peak V5.90 cm/s Pulmonary Valve PV VTI0.12 mPV Mean GR2 mmHg Tricuspid Valve TR Vmax1.3 m/s TR Peak GR7.1 mmHg Left Ventricle Left ventricular cavity size is normal. There is normal LV segmental wall motion. There is normal lef t ventricular wall thickness. LVEF is 55-60%. The left ventricular diastolic function is normal. Right Ventricle The right ventricle is normal size. The right ventricular systolic function is normal. Atria The left atrium size is normal. The right atrium size is normal. Aortic Valve The aortic valve is normal in structure. No aortic regurgitation is present. There is no aortic valvu lar stenosis. Mitral Valve Mitral valve leaflets open well. There is trace of mitral valve regurgitation noted. There is no mitr al valve stenosis. Tricuspid Valve The tricuspid valve is normal in structure. There is no tricuspid valve regurgitation noted. Pulmonic Valve Pulmonic valve is not well visualized. There is no pulmonic valvular regurgitation. Great Vessels The aortic root is normal in size. The IVC is normal in size and collapses >50% with inspiration. Pericardium There is no pericardial effusion. Other Information Quality : Technically difficult study due to s/p CABG Conclusion LVEF is 55-60%.
[2024-11-06] VITALS (24 sets, daily range): BP systolic 93–121; BP diastolic 52–65; PULSE 94–109; RESP 15–44; TEMP 98.4–99.4; O2SAT 94–97
--- NOTE | 2024-11-06 01:57 | CCATH ---
SUBJECTIVE: A 59-year-old gentleman, status post CABG, coursing postoperative day #4. OBJECTIVE: GENERAL: Awake, alert, afebrile, neurologically intact. VITAL SIGNS: Stable as recorded in medical record. CHEST: Sternum stable. Incision sealed. LUNGS: Clear. EXTREMITIES: Warm and well perfused. No evidence of DVT, hematoma or infection. ASSESSMENT: Status post coronary artery bypass graft. PROBLEMS: * Coronary artery disease. Continue aspirin 81 mg, metoprolol 25 mg twice a day. * Fluid overload. Lasix 20 mg twice a day. * Deep venous thrombosis prophylaxis. Lovenox 30 mg once a day. * Dyslipidemia. * Disposition: PT, OT, cardiac rehabilitation. Discharge plan. TID: [id number] RECEIPT: [id number]
[2024-11-06 04:32] LABS: HEMATOCRIT 29.9 % (42-54); MEAN CORPUSCULAR HEMOGLOBIN 30.2 pg (27.0-33.0); MEAN CORPUSCULAR HGB CONC 32.8 g/dL (32.0-36.0); NUCLEATED RED BLOOD CELLS 0.4 % (0.0-0.19); RED BLOOD CELL COUNT(AUTO) 3.25 MIL/uL (4.50-6.20); RED CELL DISTRIBUTION WIDTH 13.7 % (11.0-15.5); WHITE BLOOD COUNT (AUTO) 8.5 K/uL (4.8-10.8)
[2024-11-06 04:45] LABS: CREATININE 1.2 mg/dL (0.5-1.3); POTASSIUM 3.8 mmol/L (3.5-5.1)
--- NOTE | 2024-11-06 09:33 | HMCIMG ---
CHEST 1VW HISTORY: Post CABG COMPARISON: 11/05/2024 FINDINGS: A frontal projection of the chest was obtained. Mild bilateral pulmonary infiltrates are seen with left more than right. Poststernotomy changes are seen. The heart is enlarged. Degenerative changes of the thoracolumbar spine are present. Right venous catheter has been removed. Tortuosity of the aorta is seen. IMPRESSION: 1. Mild bilateral pulmonary infiltrates are seen may be related to mild pulmonary vascular congestion with possible superimposed pneumonitis.
--- NOTE | 2024-11-06 10:31 | PN ---
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 At that time coronary artery bypass surgery was recommended but he decided to return to his home in [place] for further medical care. He developed recurrent limiting angina and underwent stress testing 10/31/2024 with early positive stress test findings. He was admitted to [facility] and underwent cardiac catheterization 11/01/2024 demonstrating a 90% left main stenosis, 70 and 80% tandem mid LAD stenoses, an 80% distal LAD stenosis, 60% mid left circumflex stenosis, 60% OM2 stenosis, widely patent overlapping stents in the proximal to mid RCA and a widely patent stent in the distal RCA from 07/18/2024 as well as a 70% stenosis in a posterolateral ventricular branch. He was transferred from [facility] for intra-aortic balloon pump insertion and coronary artery bypass surgery. He developed cardiac decompensation during induction of anesthesia and required emergent intra-aortic balloon pump insertion. He underwent CABG x3 with GOLD to the LAD, saphenous vein graft to the distal LAD, and saphenous vein graft to the OM-[address] Deejay Walker. Today's postoperative day 5. His postoperative course has been complicated by acute pulmonary edema and presumed shock liver with elevation of transaminases. The patient received a unit of packed cells yesterday and feels improved today. His resting dyspnea yesterday is also improved and he appears comfortable. Chest tubes and all lines have been removed. He has yet to ambulate. Physical Examination: GENERAL: No acute distress. On 2L of O2 via NC. The patient appears weak and debilitated. HEAD: Normal with no signs of head trauma. EYES: PERRLA, EOMI, conjunctiva and sclera normal. NECK: Supple without JVD. Right IJ central line LUNGS: Diminished breath sounds at the bases. Mediastinal chest incision with dressing in place HEART: Normal rate and rhythm. Normal S1 and S2 without murmurs, gallop or rub. VASC: Bilateral DP pulses 2+. Left wrist arterial line. EXT: No clubbing, cyanosis or edema. Extremities are mildly cool to the touch. GENT: Little catheter draining green urine NEURO: Awake, alert, and oriented x3. No focal neurological deficits noted. Laboratory: Hematology Labs: Test 11/06/24 04:24 Range/Units White Blood Count 8.5 4.8-10.8 K/uL Red Blood Count 3.25 L 4.50-6.20 MIL/uL Hemoglobin 9.8 L 14.0-18.0 g/dL Hematocrit 29.9 #L 42-54 % Mean Corpuscular Volume 92.0 79-99 fL Mean Corpuscular Hemoglobin 30.2 27.0-33.0 pg Mean Corpuscular Hemoglobin Concent 32.8 32.0-36.0 g/dL Red Cell Distribution Width 13.7 11.0-15.5 % Platelet Count 199 130-400 K/uL Mean Platelet Volume 10.7 H 7.5-10.5 fL Nucleated Red Blood Cells 0.4 H 0.0-0.19 % Chemistry Labs: Test 11/06/24 04:24 11/05/24 20:04 Range/Units Sodium Level 145 136-145 mmol/L Potassium Level 3.8 3.5-5.1 mmol/L Chloride Level 105 101-111 mmol/L Carbon Dioxide Level 31 21-32 mmol/L Blood Urea Nitrogen 29 H 7-18 mg/dL Creatinine 1.2 0.5-1.3 mg/dL Glomerular Filtration Rate Calc 69 >90 mL/min Random Glucose 128 H 70-105 mg/dL Total Calcium 8.3 L 8.5-10.1 mg/dL Whole Blood Glucose 146 H 70-110 MG/DL Diagnostics / Radiology: Left heart catheterization [facility] 11/01/2024: Normal LV systolic function and segmental wall motion with LV EF of 65% No MR. No aortic stenosis. Severe left main and multivessel coronary artery disease with 90% ostial left main stenosis, 70% and 80% tandem mid LAD stenosis, 80% distal LAD stenosis, 60% mid left circumflex stenosis and 60% OM2 stenosis, widely patent overlapping stents in the proximal to mid RCA and distal RCA from 07/18/2024, and 70% PLV branch stenosis 2D echo 11/05/2024: Conclusion LVEF is 55-60%. DICTATED BY: MERVIN SERRA MD DATE: 11/05/241401 Impression and Plan: Severe multivessel CAD with 90% left main involvement by cardiac catheterization at [facility] on 11/01/2024 with 90% ostial left main stenosis, 70% and 80% tandem mid LAD stenosis, 80% distal LAD stenosis, 60% mid left circumflex stenosis and 60% OM2 stenosis, widely patent overlapping stents in the proximal to mid RCA and distal RCA from 07/18/2024, and 70% PLV branch stenosis: Status post pump assisted CABG x3v (GOLD-LAD, RSVG-DISTAL LAD, RSVG-OM ) on 11/01/[address] Walekr: Status post intra-aortic balloon pump insertion for stabilization intraoperatively during bypass surgery 11/01/2024: -transition to p.o. Lasix 20 p.o. daily -Continue aspirin 81 mg daily and hold atorvastatin 80 mg daily due to transaminitis -continue metoprolol 12.5 mg p.o. b.i.d. -begin clopidogrel 75 mg daily (will require 12 months of DAPT) status post stenting of the proximal, mid, and distal RCA 07/18/2024 Coronary artery disease status post inferior non-STEMI [facility] treated with PTCA and stenting of the proximal and mid RCA with overlapping 3.5 x 48 and 3.5 x 28 Xience drug-eluting stent and a 2.5 x 8 mm Xience drug-eluting stent to the distal RCA on 07/18/2024: -begin clopidogrel 75 mg daily today and continue dual antiplatelet therapy to complete one year Preserved LV systolic function preoperatively with LV EF of 65% by cardiac catheterization 11/01/2024: Postop 2D echo 11/05/2024 demonstrated an LVEF of 55-60%: -no clear indication for DAGOBERTO inhibitor Comorbidities: Primary hypertension Type 2 diabetes mellitus Hyperlipidemia Treadmill stress test on 10/31/2024, exercise was terminated after 4 minutes and 20 seconds due to progressive shortness of breath and chest discomfort with significant ST elevations in AVR, concerning for multivessel CAD ANAMARIA CARR MD Nov 06, 2024 10:31
[2024-11-06] MEDS: cloPIDOgrel 75MG TAB PO SCH (11:01)
--- NOTE | 2024-11-06 11:02 | PN ---
[facility] PROGRESS NOTE Date Patient Seen: Nov 06, 2024 Time of Visit: 11:00 Supervising Physician: Royce Dougherty MD Primary Care Physician: Never seen a family doctor, only Dr. Jorge Blevins Outpatient Specialists: Jorge Hawkins Inpatient Consults: Dr. Blevins, Dr. Coleman PROBLEM LIST: Unstable angina Non STEMI S/P C with MvCAD, left main disease in [facility] on 11/01/2024 Multivessel coronary artery disease S/P CABG x3 and IABP on 11/02 Dr. Coleman IABP Discontinued 11/04 Post op leukocytosis- reactive Acute diastolic dysfunction heart failure - LVEF 55% Primary hypertension Hyperglycemia in the setting of type 2 diabetes mellitus Normal diastolic function LVEF is 55-60% on 2D echo 11/05/24 History of hypertension, hyperlipidemia, diabetes mellitus, CAD post stent and PTCA, former 50 pack year cigarette smoker INTERVAL HISTORY: 11/02 patient is awake alert and oriented x3 no acute event. Patient had undergone a CABG times three yesterday, salmeron to LAD, RSVG to distal LAD, RSVG to OM, and intra-aortic balloon pump placement. This time he remains intubated on SIMV 6/700/5/40%. ABG is reviewed and within normal limits. Patient is not sedated very lethargic at this time. He remains on vasopressor with vasopressin, epinephrine, and Levophed. Continue to wean down these vasopressors. Otherwise intra-aortic balloon pump with 1:1 augmentation. Chest tube in place with output of 350 cc. Urine output was 2.6 L balance-350 cc. Continue post CABG care, isulin drip. Chest x-ray with no pneumothorax. Tip of the intra-aortic balloon pump is in ICS 4. Obtain cxr in a.m.. 11/03 patient remains intubated on SIMV 10/5 FiO2 40%, ABG this morning pH 7.45, pCO2 47 PO2 97 bicarb is 32. Chemistry with sodium 151 this is actually down from 156 yesterday creatinine is 1.5 down from 1.7 yesterday. He has been diuresed with urine output of 7.1 L balance-4 L. Chest tube with 140 cc. Liver function with the AST up to 500 from 21 and ALT is 200 from 49. Total bilirubin remains normal at 1.0, patient likely has shock liver, we will continue to follow liver function tomorrow. Otherwise hematology with WBC of 19.0 from 14. Hemoglobin is 9.4. He has no fever with T-max 98.8. Chest x-ray this morning with no acute changes, no pneumothorax. He remains on vasopressors with epinephrine and Levophed drip. Continue to wean down as tolerated keep MAP >65. Patient also has intra-aortic balloon pump at 1:1 being weaned to 1:2 this morning, plan to discontinue in AM. Patient is being weaned to extubate today. 11/04 patient is awake alert and following commands lying down in bed accompanied by his . He has been extubated yesterday doing well. At the moment he is on nasal cannula 2 L. Sat is 99%. Heart rate is 112. Respiratory rate is 20. Blood pressure is 112/46. He remains on epinephrine drip. Continue wean down as tolerated. Urine output is 3.4 L with balance-1.4 L. patient's chest tube with output of 50 cc. This morning WBC is 14 down from 19 hemoglobin is 9.6. Chemistry creatinine is 1.4 this is up from 1.2 glucose is 176 sodium 155. LFT with total bilirubin up to 1.3 from 1.0. Avoid hypotension. Continue CABG care. Continue CV surgery recommendations. Chest x-ray in the morning. 11/05-patient is awake alert and oriented x3. Denies any chest pain, shortness of breath or palpitations at this time. Intra-aortic balloon pump removed yesterday. Patient is off pressors hemodynamically stable with a blood pressure 120/65 heart rate in the 90s respiratory rate of 22 unlabored saturating 97% with 2 L via nasal cannula afebrile. T-max 99.9 in the last 24 hours. Urine output 5.3 L with a balance of-4 L chest tube drained 90 mL plan is to remove chest tube and central line today per CV surgery. On laboratory WBCs improving 11.7 H&H 8/24.7, pending 1 unit of PRBCs transfusion today, platelet count is normal. Chemistry potassium is 3.2 covered per protocol BUN 28 creatinine 1.1 GFR of 77 with a glucose of 110 mg/dL. 2D echo revealed LVEF 55-60%. 11/06- Day #5 S/P CABG. He is awake alert oriented x3 sitting up in recliner chair. Patient has no complaints denies any chest pain shortness breath or palpitations. He reports feeling better. Improving. Hemodynamically stable not any pressors heart rate in the 90s saturating 94% on room air and afebrile. Currently pulling on the IS 1.2 L with the improvement. Urine output 3.8 L with a balance of-2.5 L since tube has been removed. On laboratory WBCs have normalized H&H is 9.8/29.9 platelet count is normal. On chemistry creatinine is 1.2 GFR 69 seems to be baseline. Glucose 128 mg/dL. Chest x-ray with mild bilateral pulmonary infiltrates are seen may be related to mild pulmonary vascular congestion. No pneumothorax no pleural effusion 2D echo resulted with LVEF of 55-60% with left ventricular diastolic function that is normal. REVIEW OF SYSTEMS: General: No Fever, No Chills, No Night Sweats, No Fatigue, No Malaise, No Appetite HEENT: No Head Aches, No Visual Changes, No Eye Pain, No Ear Pain, No Dysphasia, No Sinus Congestion, No Post Nasal Drip, No Sore Throat Pulmonary: No Dyspnea; No Cough, No Pleuritic Chest Pain Cardiovascular: No chest pain, No Palpitations, Orthopnea, Paroxysmal Noc. Dyspnea, Edema, Lt Headedness Gastrointestinal: No: Nausea, Vomiting, Abdominal Pain, Diarrhea, Constipation, Melena, Hematochezia Genitourinary: No Dysuria, No Frequency, No Incontinence, No Hematuria, No Retention Musculoskeletal: No: other, neck pain, shoulder pain, arm pain, back pain, hand pain, leg pain, foot pain Skin: No Urticaria, No Rash Neurological: No: Weakness, Numbness, Incoordination, Change in speech, Confusion, Seizures PHYSICAL EXAM: GENERAL: alert, weak, awake oriented x 3 HEENT: EOMI, Sclera non icteric, moist mucosa NECK: Supple, no JVD, trachea midline LUNGS: Clear breath sounds bilaterally. No wheezes HEART: Regular rate and rhythm. Normal S1 and S2, without murmurs ABD: Abdomen soft, nontender. Bowel sounds present EXT: No clubbing cyanosis or edema. Bilateral pedal pulses. NEURO: Alert and oriented to person, follows commands Vital Signs (last 8hr) Date Time Temp Pulse Resp B/P (MAP) Pulse Ox O2 Delivery O2 Flow Rate FiO2 11/06/24 08:00 97 Room Air* 0 21 11/06/24 08:00 100 15 116/58 96 Room Air 11/06/24 07:00 99.1 100 15 101/58 95 Room Air 11/06/24 06:27 94 18 11/06/24 06:26 18 N/Cannula Low lpm 21 11/06/24 06:00 97 20 94/55 93 Room Air 11/06/24 05:00 98 17 112/62 100 Nasal Cannula 2.0 11/06/24 04:00 98.8 98 18 121/65 100 Nasal Cannula 2.0 11/06/24 04:00 97 Nasal Cannula* 2 28 LABS: Hematology Labs: Test 11/06/24 04:24 Range/Units White Blood Count 8.5 4.8-10.8 K/uL Red Blood Count 3.25 L 4.50-6.20 MIL/uL Hemoglobin 9.8 L 14.0-18.0 g/dL Hematocrit 29.9 #L 42-54 % Mean Corpuscular Volume 92.0 79-99 fL Mean Corpuscular Hemoglobin 30.2 27.0-33.0 pg Mean Corpuscular Hemoglobin Concent 32.8 32.0-36.0 g/dL Red Cell Distribution Width 13.7 11.0-15.5 % Platelet Count 199 130-400 K/uL Mean Platelet Volume 10.7 H 7.5-10.5 fL Nucleated Red Blood Cells 0.4 H 0.0-0.19 % Chemistry Labs: Test 11/06/24 04:24 11/05/24 20:04 Range/Units Sodium Level 145 136-145 mmol/L Potassium Level 3.8 3.5-5.1 mmol/L Chloride Level 105 101-111 mmol/L Carbon Dioxide Level 31 21-32 mmol/L Blood Urea Nitrogen 29 H 7-18 mg/dL Creatinine 1.2 0.5-1.3 mg/dL Glomerular Filtration Rate Calc 69 >90 mL/min Random Glucose 128 H 70-105 mg/dL Total Calcium 8.3 L 8.5-10.1 mg/dL Whole Blood Glucose 146 H 70-110 MG/DL DIAGNOSTICS / RADIOLOGY RESULTS: [ ] Signed PATIENT: QUITA CHRISTOPHERTO MR#: [id number] : 1965 SEX: M AGE: 59 LOCATION: 2CV ORDER 230 STATUS: ADM IN REPORT#: [id number] SERVICE 0400 REASON: s/p CABG ORDERING PHYSICIAN: REBEKA COLEMAN MD PROCEDURE: CXR1VW - CHEST 1VW CHEST 1VW HISTORY: Post CABG COMPARISON: 11/05/2024 FINDINGS: A frontal projection of the chest was obtained. Mild bilateral pulmonary infiltrates are seen with left more than right. Poststernotomy changes are seen. The heart is enlarged. Degenerative changes of the thoracolumbar spine are present. Right venous catheter has been removed. Tortuosity of the aorta is seen. IMPRESSION: 1. Mild bilateral pulmonary infiltrates are seen may be related to mild pulmonary vascular congestion with possible superimposed pneumonitis. DICTATED BY: PASTORA RICHARD MD DATE: 11/06/24929 ELECTRONICALLY SIGNED BY: PASTORA RICHARD MD DATE: 11/06/[address] surgeon recommendations Follow cardiology recommendations Multimodal pain management Monitoring H&H Monitor chest tube output, DC per CV surgery Chest x-ray in the morning 2D echo results LVEF 55-60%, normal diastolic function Transfuse if absolutely necessary to keep hemoglobin above 8 Maintain O2 sats greater than 92% Incentive spirometry Glycemic control with goal of 80-180 Referral for cardiac rehabilitation Speech to eval once patient is extubated NEURO: Minimize central acting medications as possible. Fall Precautions. Well lighted room through the day and minimize interruptions through the night to prevent acute delirium. PULMONARY: Supplemental 02 as needed Titrate Fio2 to keep Spo2 > or = 90% DuoNebs and CPT as needed IS hourly while awake for pulmonary hygiene Out of bed to chair as tolerated CARDIOVASCULAR: Follow hemodynamics. Titrate vasopressor to keep MAP >65 or systolic blood pressure >95mmHg Right sheath care with hemodynamic monitoring. Heparin drip Resume metoprolol, statin, and aspirin Pasugrel to resume per CV surgery Follow cardiology and CV surgery recommendations Echocardiogram will be repeated DRIPS: Insulin Vasopressin Epinephrine Levophed LINES: Right IJ cordis Left groin sheath for IABP Right groin sheath from THO 11/01 GI & NUTRITION: Continue nutritional support Aspirations precautions Prokinetic agents and laxatives as needed KIDNEYS & ELECTROLYTES: Strict monitoring of intake and output Daily weights Avoid nephrotoxic agents Monitor electrolytes and replace as needed Goal urine output of 30mL/hr or 0.5mL/kg/hr ENDOCRINE: Maintain blood glucose between 100-180 at all times. Insulin sliding scale for blood glucose management INFECTIOUS DISEASE: Trend temperature. Benavides-culture if febrile. Micro: Antibiotics: HEMATOLOGY & COAGULATION: Monitor H&H. Keep Hgb > 7 Transfuse 1 unit of PRBC for Hgb < 7 Transfuse 1 pack of platelets of platelets < 20, 000 Watch for any signs and symptoms of bleeding SKIN: Pressure ulcer prevention per facility protocol Rehab: PT/OT Prophylaxis: GI: Pepcid DVT: Heparin Code Status: Full Resuscitation Disposition: ICU Other: Total patient care time exceeds 35 minutes excluding all procedures. Case was discussed and seen with my supervising physician. The above plan was formulated and agreed upon. ANGELI HAYDEN Nov 06, 2024 11:02
--- NOTE | 2024-11-06 18:36 | PN ---
SUBJECTIVE: A 59-year-old gentleman, status post CABG, coursing postoperative day #5. OBJECTIVE: GENERAL: Awake, alert, no acute distress. VITAL SIGNS: Stable as recorded in medical record. CHEST: Sternotomy is healing. Sternum is sealed. EXTREMITIES: Warm and well perfused. HEART: Regular rate and rhythm. LUNGS: Clear. ASSESSMENT: Status post coronary artery bypass graft. * Dyslipidemia. Lipitor 40 mg once a day. * Fluid overload. Lasix 20 mg twice a day. * Coronary artery disease. Aspirin 81 mg, metoprolol 25 mg twice a day. PLAN: As outlined. Discharge planning. OT, PT, cardiac rehab. TID: [id number] RECEIPT: [id number]
[2024-11-07] VITALS (10 sets, daily range): BP systolic 100–121; BP diastolic 55–69; PULSE 97–117; RESP 16–36; TEMP 98.1–99.4; O2SAT 94–96
[2024-11-07 04:17] LABS: BASOPHILS # (AUTO) 0.02 K/uL (0.00-0.20); BASOPHILS % (AUTO) 0.2 % (0.0-5.0); EOSINOPHILS # (AUTO) 0.15 K/uL (0.00-0.70); EOSINOPHILS % (AUTO) 1.8 % (0.0-8.0); HEMATOCRIT 30.2 % (42-54); IMMATURE GRANULOCYTE ABSOLUTE 0.08 K/uL (0-1); LYMPHOCYTES # (AUTO) 1.7 K/uL (1.0-4.8); MEAN CORPUSCULAR HEMOGLOBIN 30.2 pg (27.0-33.0); MEAN CORPUSCULAR HGB CONC 33.4 g/dL (32.0-36.0); MEAN CORPUSCULAR VOLUME 90.4 fL (79-99); MONOCYTES # (AUTO) 0.8 K/uL (0.1-1.0); MONOCYTES % (AUTO) 9.6 % (3.0-13.0); NEUTROPHILS # (AUTO) 5.6 K/uL (1.8-7.7); NEUTROPHILS % (AUTO) 67.4 % (40.0-77.0); NUCLEATED RED BLOOD CELLS 0.2 % (0.0-0.19); PLATELET COUNT (AUTO) 230 K/uL (130-400); RED BLOOD CELL COUNT(AUTO) 3.34 MIL/uL (4.50-6.20); RED CELL DISTRIBUTION WIDTH 13.2 % (11.0-15.5); WHITE BLOOD COUNT (AUTO) 8.3 K/uL (4.8-10.8)
[2024-11-07 04:37] LABS: ALBUMIN 2.1 g/dL (3.5-5.0); BILIRUBIN,TOTAL 0.8 mg/dL (0.2-1.0); CREATININE 0.9 mg/dL (0.5-1.3); POTASSIUM 3.3 mmol/L (3.5-5.1); TOTAL PROTEIN, SERUM 5.6 g/dL (6.0-8.3)
--- NOTE | 2024-11-07 05:36 | NUR ---
Transfer to Room 205 bedside report given to HARLAN oCnn. all questions answered. patient awake alert and oriented x4. denies chest pain or shortness of breath and placed on telemetry pack then transferred to room 205 via cardiac chair.
[2024-11-07] MEDS: furoSEMIDE 20 MG TABLET PO SCH (07:57)
[2024-11-07] MEDS ORDERED: CLOP-31 PO (09:22)
[2024-11-07] MEDS ORDERED: ATOR40TA69 PO (09:22)
--- NOTE | 2024-11-07 09:36 | PN ---
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 At that time coronary artery bypass surgery was recommended but he decided to return to his home in [place] for further medical care. He developed recurrent limiting angina and underwent stress testing 10/31/2024 with early positive stress test findings. He was admitted to [facility] and underwent cardiac catheterization 11/01/2024 demonstrating a 90% left main stenosis, 70 and 80% tandem mid LAD stenoses, an 80% distal LAD stenosis, 60% mid left circumflex stenosis, 60% OM2 stenosis, widely patent overlapping stents in the proximal to mid RCA and a widely patent stent in the distal RCA from 07/18/2024 as well as a 70% stenosis in a posterolateral ventricular branch. He was transferred from [facility] for intra-aortic balloon pump insertion and coronary artery bypass surgery. He developed cardiac decompensation during induction of anesthesia and required emergent intra-aortic balloon pump insertion. He underwent CABG x3 with GOLD to the LAD, saphenous vein graft to the distal LAD, and saphenous vein graft to the OM-[address] Deejay Walker. Today is postoperative day 6. His postoperative course has been complicated by acute pulmonary edema and presumed shock liver with elevation of transaminases. This morning the patient is asymptomatic, has been tolerated ambulation in the quispe, and is anxious to be discharged home. Physical Examination: GENERAL: No acute distress. On 2L of O2 via NC. The patient appears weak and debilitated. HEAD: Normal with no signs of head trauma. EYES: PERRLA, EOMI, conjunctiva and sclera normal. NECK: Supple without JVD. Right IJ central line LUNGS: Diminished breath sounds at the bases. Persistent scattered rales. Mediastinal chest incision with dressing in place HEART: Normal rate and rhythm. Normal S1 and S2 without murmurs, gallop or rub. VASC: Bilateral DP pulses 2+. Left wrist arterial line. EXT: No clubbing, cyanosis or edema. Extremities are mildly cool to the touch. GENT: Little catheter draining green urine NEURO: Awake, alert, and oriented x3. No focal neurological deficits noted. Laboratory: Hematology Labs: Test 11/07/24 03:56 Range/Units White Blood Count 8.3 4.8-10.8 K/uL Red Blood Count 3.34 L 4.50-6.20 MIL/uL Hemoglobin 10.1 L 14.0-18.0 g/dL Hematocrit 30.2 L 42-54 % Mean Corpuscular Volume 90.4 79-99 fL Mean Corpuscular Hemoglobin 30.2 27.0-33.0 pg Mean Corpuscular Hemoglobin Concent 33.4 32.0-36.0 g/dL Red Cell Distribution Width 13.2 11.0-15.5 % Platelet Count 230 130-400 K/uL Mean Platelet Volume 10.5 7.5-10.5 fL Immature Granulocyte % (Auto) 1.0 0-1 % Neutrophils (%) (Auto) 67.4 40.0-77.0 % Lymphocytes (%) (Auto) 20.0 L 21.0-51.0 % Monocytes (%) (Auto) 9.6 3.0-13.0 % Eosinophils (%) (Auto) 1.8 0.0-8.0 % Basophils (%) (Auto) 0.2 0.0-5.0 % Neutrophils # (Auto) 5.6 1.8-7.7 K/uL Lymphocytes # (Auto) 1.7 1.0-4.8 K/uL Monocytes # (Auto) 0.8 0.1-1.0 K/uL Eosinophils # (Auto) 0.15 0.00-0.70 K/uL Basophils # (Auto) 0.02 0.00-0.20 K/uL Absolute Immature Granulocyte (auto 0.08 0-1 K/uL Nucleated Red Blood Cells 0.2 H 0.0-0.19 % Chemistry Labs: Test 11/07/24 03:56 11/06/24 20:06 Range/Units Sodium Level 144 136-145 mmol/L Potassium Level 3.3 L 3.5-5.1 mmol/L Chloride Level 107 101-111 mmol/L Carbon Dioxide Level 30 21-32 mmol/L Blood Urea Nitrogen 23 H 7-18 mg/dL Creatinine 0.9 0.5-1.3 mg/dL Glomerular Filtration Rate Calc 98 >90 mL/min Random Glucose 138 H 70-105 mg/dL Total Calcium 8.6 8.5-10.1 mg/dL Magnesium Level 2.00 1.80-2.40 mg/dL Total Bilirubin 0.8 0.2-1.0 mg/dL Aspartate Amino Transf (AST/SGOT) 57 H 10-37 U/L Alanine Aminotransferase (ALT/SGPT) 91 H 12-78 U/L Alkaline Phosphatase 89 50-136 U/L Total Protein 5.6 L 6.0-8.3 g/dL Albumin 2.1 L 3.5-5.0 g/dL Whole Blood Glucose 212 H 70-110 MG/DL Diagnostics / Radiology: Left heart catheterization [facility] 11/01/2024: Normal LV systolic function and segmental wall motion with LV EF of 65% No MR. No aortic stenosis. Severe left main and multivessel coronary artery disease with 90% ostial left main stenosis, 70% and 80% tandem mid LAD stenosis, 80% distal LAD stenosis, 60% mid left circumflex stenosis and 60% OM2 stenosis, widely patent overlapping stents in the proximal to mid RCA and distal RCA from 07/18/2024, and 70% PLV branch stenosis 2D echo 11/05/2024: Conclusion LVEF is 55-60%. DICTATED BY: MERVIN SERRA MD DATE: 11/05/24 1402 Impression and Plan: Severe multivessel CAD with 90% left main involvement by cardiac catheterization at [facility] on 11/01/2024 with 90% ostial left main stenosis, 70% and 80% tandem mid LAD stenosis, 80% distal LAD stenosis, 60% mid left circumflex stenosis and 60% OM2 stenosis, widely patent overlapping stents in the proximal to mid RCA and distal RCA from 07/18/2024, and 70% PLV branch stenosis: Status post pump assisted CABG x3v (GLOD-LAD, RSVG-DISTAL LAD, RSVG-OM ) on 11/01/[address] Walker, stable postoperative day 6: Status post intra-aortic balloon pump insertion for stabilization intraoperative ly during bypass surgery 11/01/2024: -continue p.o. Lasix 20 p.o. daily for seven days -Continue aspirin 81 mg daily -continue clopidogrel 75 mg daily to months of dual antiplatelet therapy from the time of his stent procedure 07/18/2024 -continue metoprolol succinate ER 50 mg p.o. daily -continue home Jardiance 10 mg p.o. daily -cleared for discharge home today Coronary artery disease status post inferior non-STEMI [facility] treated with PTCA and stenting of the proximal and mid RCA with overlapping 3.5 x 48 and 3.5 x 28 Xience drug-eluting stent and a 2.5 x 8 mm Xience drug-eluting stent to the distal RCA on 07/18/2024: -continue clopidogrel 75 mg daily to [id number] months of dual antiplatelet therapy from the time of his stent procedure 07/18/2024 Preserved LV systolic function preoperatively with LV EF of 65% by cardiac catheterization 11/01/2024: Postop 2D echo 11/05/2024 demonstrated an LVEF of 55-60%: -no clear indication for DAGOBERTO inhibitor Comorbidities: Primary hypertension Type 2 diabetes mellitus Hyperlipidemia Treadmill stress test on 10/31/2024, exercise was terminated after 4 minutes and 20 seconds due to progressive shortness of breath and chest discomfort with significant ST elevations in AVR, concerning for multivessel CAD ANAMARIA CARR MD Nov 07, 2024 09:36
[2024-11-07] MEDS ORDERED: FURO20TA4 PO (09:37)
--- NOTE | 2024-11-07 19:30 | NUR ---
Discharge ordered rec'd from dr. Dougherty, noted and entered, Patient then decided wanted to take shower prior to discharge. Prescriptions sent electronically to [facility] in [place] as preferred pharmacy patinet with all dc instructions, including incision care, med adherence, activity level and appointment follow up. Patient to start their Jardience in am for sugar control incisions open to air without redness of induration vss, piv out, left with all belonging via w/chair in care of family ,
--- NOTE | 2024-11-07 20:13 | DS ---
[facility] DISCHARGE SUMMARY Date Patient Seen: Nov 07, 2024 Time of Visit: 15:01 Supervising Physician: TAVARES NOONAN MD Primary Care Physician: Never seen a family doctor, only Dr. Jorge Blevins Outpatient Specialists: Jorge Hawkins Inpatient Consults: Dr. Blevins, Dr. Walker ADMITTING DIAGNOSES: Unstable angina Non STEMI S/P C with MvCAD, left main disease in [facility] on 11/01/2024 Multivessel coronary artery disease S/P CABG x3 and IABP on 11/02 Dr. Walker DISCHARGE DIAGNOSES: Unstable angina Non STEMI S/P LHC with MvCAD, left main disease in [facility] on 11/01/2024 Multivessel coronary artery disease S/P CABG x3 and IABP on 11/02 Dr. Walker IABP Discontinued 11/04 Post op leukocytosis- reactive Acute diastolic dysfunction heart failure - LVEF 55% Primary hypertension Hyperglycemia in the setting of type 2 diabetes mellitus Normal diastolic function LVEF is 55-60% on 2D echo 11/05/24 History of hypertension, hyperlipidemia, diabetes mellitus, CAD post stent and PTCA, former 50 pack year cigarette smoker HPI AND HOSPITAL COURSE: Patient is seen and examined at the bedside, not in distress, he is status post CABG x6 he is hemodynamically stable, no chest pain or SOB, denies fever, chills, nausea or vomiting, no issues he is doing much better, and plan is to be discharge home on BB, ASA, Statin and advised to follow up appointment with 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 CHRONIC PROBLEMS: continue previous management per PCP unless otherwise indicated VISUAL DEVELOPER FINDINGS/RECOMMENDATIONS: PROCEDURES: as mentioned above DISCHARGE MEDICATIONS: continue with medications as instructed Pt hemodynamically stable and afebrile at time of discharge. PCP notified of patients admission, hospital course and discharge. PHYSICAL EXAM: GENERAL: alert, weak, awake oriented x 3 HEENT: EOMI, Sclera non icteric, moist mucosa NECK: Supple, no JVD, trachea midline LUNGS: Clear breath sounds bilaterally. No wheezes HEART: Regular rate and rhythm. Normal S1 and S2, without murmurs . Wound clean and dry ABD: Abdomen soft, nontender. Bowel sounds present EXT: No clubbing cyanosis or edema. Bilateral pedal pulses. NEURO: Alert and oriented to person, follows commands FOLLOW-UP: Follow-up with PCP in 2-3 days RECOMMENDATIONS: See Discharge Instructions More than 30 minutes spent on discharge process, including evaluation of the patient, discussion with nursing staff, medication reconciliation and follow-up appointments ATTESTATION BY PHYSICIAN Documentation assistance provided by a scribe, information recorded by the scribe was done at my direction and has been reviewed and validated by me." TAVARES NOONAN MD I personally scribed for SHAISTA CHAPIN MD (SANDRA) on 11/07/24 at 20:13. Electronically submitted by Shahrzad Singh ([id number]). I personally scribed for SHAISTA CHAPIN MD (SANDRA) on 11/07/24 at 20:57. Electronically submitted by Shahrzad Singh ([id number]). SHAISTA CHAPIN MD Nov 07, 2024 20:13
[2024-11-07] MEDS ORDERED: atorVAStatin 40 MG TABLET PO SCH (21:00)
== END 2024-11-07 19:30 | disposition home or self-care (01) | DRG 235 ==
LOC: 2CH 10:50 → 2CV 15:36 → 2AH 11-07 05:39
PROVIDERS: ADMIT Internal Medicine Critical Care Medicine; ATTEND Internal Medicine Critical Care Medicine
PROC: 5A02210 Assistance with Cardiac Output using Balloon Pump, Continuous (ICD-10-PCS; 2024-11-01)
PROC: 30233K1 Transfusion of Nonautologous Frozen Plasma into Peripheral Vein, Percutaneous Approach (ICD-10-PCS; 2024-11-01)
PROC: 30233R1 Transfusion of Nonautologous Platelets into Peripheral Vein, Percutaneous Approach (ICD-10-PCS; 2024-11-01)
PROC: 06BQ4ZZ Excision of Left Saphenous Vein, Percutaneous Endoscopic Approach (ICD-10-PCS; principal; 2024-11-01 15:40)
PROC: 02100Z9 Bypass Coronary Artery, One Artery from Left Internal Mammary, Open Approach (ICD-10-PCS; 2024-11-01 15:40)
PROC: 021109W Bypass Coronary Artery, Two Arteries from Aorta with Autologous Venous Tissue, Open Approach (ICD-10-PCS; 2024-11-01 15:40)
PROC: 5A1221Z Performance of Cardiac Output, Continuous (ICD-10-PCS; 2024-11-01 15:40)
PROC: 30233N1 Transfusion of Nonautologous Red Blood Cells into Peripheral Vein, Percutaneous Approach (ICD-10-PCS; 2024-11-05)
DX: I25.110 Atherosclerotic heart disease of native coronary artery with unstable angina pectoris (principal); I21.4 Non-ST elevation (NSTEMI) myocardial infarction; I50.31 Acute diastolic (congestive) heart failure; J95.1 Acute pulmonary insufficiency following thoracic surgery; E11.65 Type 2 diabetes mellitus with hyperglycemia; I11.0 Hypertensive heart disease with heart failure; E78.00 Pure hypercholesterolemia, unspecified; Z87.891 Personal history of nicotine dependence; I25.2 Old myocardial infarction; Z95.5 Presence of coronary angioplasty implant and graft; D72.829 Elevated white blood cell count, unspecified; Z79.82 Long term (current) use of aspirin; Z79.899 Other long term (current) drug therapy; Z79.02 Long term (current) use of antithrombotics/antiplatelets
CPT/HCPCS: 36415; 71045; 80048; 80053; 80061; 82330; 82435; 82803; 82947; 82948; 83036; 83605; 83735; 83880; 84100; 84132; 84295; 84484; 85014; 85018; 85025; 85027; 85347; 85384; 85610; 85730; 86850; 86900; 86901; 86923; 86927; 93005; 93306; 93312; 93325; 93880; 94002; 94003; 94010; 94150; 94640; 94664; A4357; A4450; A7048; G0378; J0171; J0612; J0690; J1644; J1815; J1940; J2003; J2150; J2250; J2371; J2440; J2704; J2720; J3010; J3475; J3480; J3490; J7030; J7040; J7050; J7060; J7070; J7120; P9012; P9016; P9017; P9034; P9045; P9047; Q9968; A4215; A4351; A4510; A4600; A4649; A6204; A9900; C1713; C1776; C1887